=== PATIENT | male | born 1970 | race Caucasian/White ===

== ENCOUNTER 2017-08-03 15:10 | Emergency (ER) | payer SELFPAY ==
--- NOTE | 2017-08-03 17:12 | RAD REPORT ---
EXAM DESCRIPTION: Alona Archuleta And Lat (2 Views)08/03/2017 5:04 pm CLINICAL HISTORY: Cough COMPARISON: 2010 FINDINGS: The lungs appear clear of acute infiltrate. Biapical pleural thickening is without signif icant change from 2010 The heart is normal size IMPRESSION: No acute abnormalities displayed
[2017-08-03] MEDS ORDERED: HYDROCODONE/CHLORPHEN 5 ML/OSYR ONE (17:27)
--- NOTE | 2017-08-03 17:31 | ER ---
Nurse's Notes [facility] Name: Casey Owens Age: 46 yrs Sex: Male : 1970 Arrival Date: 08/03/2017 Time: 15:13 Bed 9 Private MD: None, None Diagnosis: Bronchitis, not specified as acute or chronic Presentation: 08/03 15:23 Presenting complaint: Patient states: C/O flu like s/s... Onset Thursday of sore throat, rk2 congestion, VICKERS... Body aches. Coughing. Chills. Transition of care: patient was not received from another setting of care. Onset of symptoms was July 31, 2017. Initial Sepsis Screen: Does the patient meet any 2 criteria? No. Patient's initial sepsis screen is negative. Does the patient have a suspected source of infection? No. Patient's initial sepsis screen is negative. Care prior to arrival: None. 15:23 Method Of Arrival: Ambulatory rk2 15:23 Acuity: CARYN 4 rk2 Historical: - Allergies: 15:25 No Known Allergies; rk2 - PMHx: 16:51 Hypertension; sg - Immunization history:: Pneumococcal vaccine is not up to date, Flu vaccine is not up to date. - Social history:: Smoking status: Patient uses tobacco products, smokes three packs cigarettes per day. Screenin:40 Abuse screen: Denies threats or abuse. Denies injuries from another. Nutritional sg screening: No deficits noted. Tuberculosis screening: No symptoms or risk factors identified. Never had TB. Fall Risk None identified. Assessment: 16:40 General: Appears in no apparent distress. comfortable, well groomed, well developed, sg well nourished, Behavior is calm, cooperative, appropriate for age. Pain: Complains of pain in bodyaches. Neuro: Level of Consciousness is awake, alert, obeys commands, Oriented to person, place, time, Court Deputy are equal bilaterally Moves all extremities. Full function Gait is steady, Speech is normal, Facial symmetry appears normal. Cardiovascular: Heart tones S1 S2 present Capillary refill is brisk in bilateral fingers Patient's skin is warm and dry. Respiratory: Airway is patent Respiratory effort is even, unlabored, Respiratory pattern is regular, symmetrical, Breath sounds are clear. GI: No signs and/or symptoms were reported involving the gastrointestinal system. : No signs and/or symptoms were reported regarding the genitourinary system. EENT: Oral mucosa is moist. Throat is pink. Derm: No signs and/or symptoms reported regarding the dermatologic system. Musculoskeletal: No signs and/or symptoms reported regarding the musculoskeletal system. Vital Signs: 15:25 BP 151 / 99; Pulse 83; Resp 18; Temp 98.6; Pulse Ox 98% on R/A; rk2 17:40 BP 132 / 88; Pulse 87; Resp 17; Temp 98.6; Pulse Ox 100% on R/A; sg ED Course: 15:13 Patient arrived in ED. mr 15:13 None, None is Private Physician. mr 15:25 Triage completed. rk2 15:25 Arm band placed on left wrist. rk2 16:26 Johann De La Paz NP [facility]. pm1 16:26 Al Braden MD is Attending Physician. pm1 16:39 Titi Alvarenga, RADHA is Primary Nurse. sg 16:40 Patient has correct armband on for positive identification. Adult w/ patient. Pulse ox sg on. NIBP on. 16:47 Strep swab sent to lab. sg 16:57 Patient moved to radiology via wheelchair. ml 17:02 X-ray completed. Patient tolerated procedure well. ml 17:02 Patient moved back from radiology. ml 17:04 Chest Pa And Lat (2 Views) XRAY In Process Unspecified. EDMS 17:40 No provider procedures requiring assistance completed. Patient did not have IV access sg during this emergency room visit. Administered Medications: 17:30 Drug: Tussionex Pennkinetic ER 5 ml Route: PO; sg Outcome: 17:30 Discharge ordered by . pm1 17:40 Discharged to home ambulatory, with family. sg 17:40 Condition: good 17:40 Discharge instructions given to patient, Instructed on discharge instructions, follow up and referral plans. medication usage, safety practices, Demonstrated understanding of instructions, follow-up care, medications, Prescriptions given X 3. 17:46 Patient left the ED. dm5 Signatures: Dispatcher [employer] Natasha Gibbs RN RN dm5 Titi Alvarenga RN RN sg Tushar Mili Milan, Fiona Johann De La Paz, SE CONDUCTOR SYMPHONIC ORCHESTRA pm1 Anu Rogers RN RN rk2
--- NOTE | 2017-08-03 17:31 | EDPHYS ---
Physician Documentation [facility] Name: Casey Owens Age: 46 yrs Sex: Male : 1970 Arrival Date: 08/03/2017 Time: 15:13 Bed 9 Private MD: None, None ED Physician Al Braden HPI: 08/03 17:20 This 46 yrs old Male presents to ER via Ambulatory with complaints of Flu pm1 Symptoms. 17:20 The patient or guardian reports cough, with productive sputum, that is yellow, flu pm1 symptoms, body aches. Onset: The symptoms/episode began/occurred 2 day(s) ago. Severity of symptoms: in the emergency department the symptoms are unchanged. Modifying factors: The symptoms are alleviated by OTC cold preparation, the symptoms are aggravated by nothing. Associated signs and symptoms: Pertinent positives: fever, sore throat, Pertinent negatives: chest pain, diarrhea, ear ache, rhinorrhea, vomiting. The patient has not recently seen a physician. Historical: - Allergies: 15:25 No Known Allergies; rk2 - PMHx: 16:51 Hypertension; sg - Immunization history:: Pneumococcal vaccine is not up to date, Flu vaccine is not up to date. - Social history:: Smoking status: Patient uses tobacco products, smokes three packs cigarettes per day. ROS: 17:20 Eyes: Negative for injury, pain, redness, and discharge. pm1 17:20 Neck: Negative for injury, pain, and swelling, Cardiovascular: Negative for chest pain, palpitations, and edema. 17:20 Abdomen/GI: Negative for abdominal pain, nausea, vomiting, diarrhea, and constipation, Back: Negative for injury and pain, : Negative for injury, bleeding, discharge, and swelling, MS/Extremity: Negative for injury and deformity, Skin: Negative for injury, rash, and discoloration, Neuro: Negative for headache, weakness, numbness, tingling, and seizure. 17:20 Constitutional: Positive for body aches, chills, fever, Negative for poor PO intake. 17:20 ENT: Positive for sinus congestion, sore throat, Negative for sinus pain. 17:20 Respiratory: Positive for cough, Negative for shortness of breath, wheezing. Exam: 17:20 Constitutional: This is a well developed, well nourished patient who is awake, alert, pm1 and in no acute distress. Head/Face: Normocephalic, atraumatic. Eyes: Pupils equal round and reactive to light, extra-ocular motions intact. Lids and lashes normal. Conjunctiva and sclera are non-icteric and not injected. Cornea within normal limits. Periorbital areas with no swelling, redness, or edema. 17:20 Neck: Trachea midline, no thyromegaly or masses palpated, and no cervical lymphadenopathy. Supple, full range of motion without nuchal rigidity, or vertebral point tenderness. No Meningismus. Chest/axilla: Normal chest wall appearance and motion. Nontender with no deformity. No lesions are appreciated. Cardiovascular: Regular rate and rhythm with a normal S1 and S2. No gallops, murmurs, or rubs. Normal PMI, no JVD. No pulse deficits. Respiratory: Lungs have equal breath sounds bilaterally, clear to auscultation and percussion. No rales, rhonchi or wheezes noted. No increased work of breathing, no retractions or nasal flaring. Abdomen/GI: Soft, non-tender, with normal bowel sounds. No distension or tympany. No guarding or rebound. No evidence of tenderness throughout. Back: No spinal tenderness. No costovertebral tenderness. Full range of motion. Skin: Warm, dry with normal turgor. Normal color with no rashes, no lesions, and no evidence of cellulitis. MS/ Extremity: Pulses equal, no cyanosis. Neurovascular intact. Full, normal range of motion. 17:20 ENT: External ear(s): are unremarkable, Ear canal(s): are normal, TM's: are normal, Nose: is normal, Mouth: is normal, Posterior pharynx: Airway: normal, no evidence of obstruction, patent, Tonsils: are normal in appearance, with erythema, no enlargement, no exudate, no ulcerations, peritonsillar mass, is not appreciated, pooling of secretions, is not appreciated. 17:20 Neuro: Orientation: is normal, Motor: moves all fours. Vital Signs: 15:25 BP 151 / 99; Pulse 83; Resp 18; Temp 98.6; Pulse Ox 98% on R/A; rk2 17:40 BP 132 / 88; Pulse 87; Resp 17; Temp 98.6; Pulse Ox 100% on R/A; sg MDM: 16:38 Patient medically screened. pm1 17:29 Data reviewed: vital signs. Data interpreted: Pulse oximetry: on room air is 98 %. pm1 Interpretation: normal. Counseling: I had a detailed discussion with the patient and/or guardian regarding: the historical points, exam findings, and any diagnostic results supporting the discharge/admit diagnosis, lab results, radiology results, the need for outpatient follow up, to return to the emergency department if symptoms worsen or persist or if there are any questions or concerns that arise at home. 08/03 15:29 Order name: Flu; Complete Time: 16:26 rk2 08/03 16:03 Order name: Strep; Complete Time: 17:29 kb 08/03 16:48 Order name: Chest Pa And Lat (2 Views) XRAY; Complete Time: 17:17 pm1 08/03 17:29 Order name: Throat Culture EDMS Administered Medications: 17:30 Drug: Tussionex Pennkinetic ER 5 ml Route: PO; sg Disposition: 08/03/17 17:30 Discharged to Home. Impression: Bronchitis, not specified as acute or chronic. - Condition is Stable. - Discharge Instructions: Acute Bronchitis, How to Use an Inhaler, Smoking Cessation, Cough, Adult. - Prescriptions for Medrol (Danny) 4 mg Oral Tablets, Dose Pack - take 1 tablet by ORAL route as directed - follow package instructions; 1 packet. Albuterol Sulfate 90 mcg/actuation - inhale 1-2 puff by INHALATION route every 4-6 hours; 1 Inhaler. Guaifenesin AC 10- 100 mg/5 mL Oral Liquid - take 10 milliliter by ORAL route every 4 hours As needed; 240 milliliter. - Medication Reconciliation Form, Thank You Letter, Antibiotic Education, Prescription Opioid Use form. - Follow up: Emergency Department; When: As needed; Reason: Worsening of condition. Follow up: Private Physician; When: 2 - 3 days; Reason: Recheck today's complaints, Continuance of care, Re-evaluation by your physician. - Problem is new. - Symptoms have improved. Addendum: 08/04/2017 21:30 Co-signature as Attending Physician, Al Braden MD. g s Signatures: Dispatcher [facility] Natasha Rai, RN RN dm5 Titi Alvarenga RN RN sg Johann De La Paz, GEOTHERMAL OPERATING ENGINEER GEOTHERMAL OPERATING ENGINEER pm1 Al Braden MD MD gs Kidder, Rhonda, RADHA RN rk2
[2017-08-03 17:56] VITALS: BP 151/99; TEMP 98.6; O2SAT 98
== END 2017-08-03 17:46 | disposition home or self-care (01) ==
LOC: ER 15:10
DX: J40 Bronchitis, not specified as acute or chronic (principal); F17.210 Nicotine dependence, cigarettes, uncomplicated
CPT/HCPCS: 71046; 87070; 87081; 87804; 99284

== ENCOUNTER 2017-10-06 15:18 | Emergency (ER) | payer OTHER ==
[2017-10-06] MEDS ORDERED: NA CHLORIDE 0.9% 1,000 ML ONE (16:28)
[2017-10-06] MEDS ORDERED: KETOROLAC 30 MG/ML INJ ONE (16:28)
[2017-10-06] MEDS ORDERED: ONDANSETRON 4 MG/2 ML VIAL ONE (16:28)
[2017-10-06 16:34] LABS: Absolute Monocytes 0.7 K/uL (0.1-1.3); Absolute Neutrophil 6.4 K/uL (1.8-8.0); Basophils % 1.1 % (0-1.3); Eosinophils % 2.8 % (0-4.4); Hematocrit 50.1 % (39.6-49.0); Lymphocytes % 28.4 % (15.3-44.8); MCH 29.2 pg (27.0-35.0); MCV 88.5 fL (80-100); MPV 8.9 fL (7.6-11.3); Monocytes % 6.7 % (3.3-12.3); RBC Red Blood Cell Count 5.66 M/uL (4.33-5.43)
--- NOTE | 2017-10-06 16:37 | RAD REPORT ---
EXAM DESCRIPTION: CT - Head Brain Wo Cont - 10/06/2017 4:28 pm CLINICAL HISTORY: HEADACHE COMPARISON: HEAD BRAIN W O CONTRAST dated 06/02/2011 TECHNIQUE: All CT scans are performed using dose optimization technique as appropriate and may inclu de automated exposure control or mA/KV adjustment according to patient size. FINDINGS: No intracranial hemorrhage, hydrocephalus or extra-axial fluid collection.No areas of brai n edema or evidence of midline shift. The paranasal sinuses and mastoids are clear. The calvarium is intact. IMPRESSION: No acute intracranial abnormality.
[2017-10-06 16:56] LABS: ALT/SGPT 38 U/L (12-78); AST/SGOT 21 U/L (15-37); Albumin 3.9 g/dL (3.4-5.0); Alkaline Phosphatase 120 U/L (45-117); BUN Blood Urea Nitrogen 11 mg/dL (7-18); Bicarbonate 26 mmol/L (21-32); Bilirubin Total 0.4 mg/dL (0.2-1.0); Glucose Level 105 mg/dL (74-106); Potassium 3.8 mmol/L (3.5-5.1); Protein, Total 7.2 g/dL (6.4-8.2); Sodium Level 140 mmol/L (136-145)
--- NOTE | 2017-10-06 17:17 | ER ---
Nurse's Notes [facility] Name: Casey Owens Age: 46 yrs Sex: Male : 1970 Arrival Date: 10/06/2017 Time: 15:22 Bed 28 Private MD: SIMÓN MEJIAS Diagnosis: Headache;Migraine;Essential (primary) hypertension Presentation: 10/06 15:22 Presenting complaint: Patient states: headache Q 2-3 days and have been occurring all sv his life. Past 2-3 months headaches have been coming on Q 2-3 days. Excedrin has some relief. Pt also c/o weakness, photosensitivity and nausea. Transition of care: patient was not received from another setting of care. Onset of symptoms was October 06, 2017. Care prior to arrival: None. 15:22 Method Of Arrival: Ambulatory sv 15:22 Acuity: CARYN 3 sv 16:00 Initial Sepsis Screen: Does the patient meet any 2 criteria? No. Patient's initial rk2 sepsis screen is negative. Does the patient have a suspected source of infection? No. Patient's initial sepsis screen is negative. 16:00 Risk Assessment: Do you want to hurt yourself or someone else? Patient reports no rk2 desire to harm self or others. Triage Assessment: 16:00 General: Appears in no apparent distress. well groomed, well developed, well nourished, rk2 Behavior is calm, cooperative. 16:00 Pain: Complains of pain in right temporal area and right side of the back of head and rk2 left temporal area and left side of the back of head and forehead. Neuro: Level of Consciousness is alert, obeys commands, Oriented to person, place, time, situation. Respiratory: Airway is patent Respiratory effort is even, unlabored, Respiratory pattern is regular, symmetrical. Derm: Skin is pink, warm \T\ dry. Historical: - Allergies: 15:25 No Known Allergies; sv - Home Meds: 15:25 esomeprazole magnesium oral oral [Active]; metoprolol succinate 25 mg oral Tb24 sv [Active]; - PMHx: 15:25 Hypertension; GERD; sv - PSHx: 15:25 right 5th digit; cyst removed from head; sv - Immunization history:: Adult Immunizations up to date. - Social history:: Smoking status: Patient uses tobacco products, smokes two packs cigarettes per day. - Ebola Screening: : No symptoms or risks identified at this time. - Family history:: not pertinent. Screenin:00 Abuse screen: Denies threats or abuse. rk2 16:00 Nutritional screening: No deficits noted. Tuberculosis screening: No symptoms or risk rk2 factors identified. Fall Risk None identified. Vital Signs: 15:26 BP 166 / 102; Pulse 79; Resp 20; Temp 98.5(O); Pulse Ox 98% ; Weight 117.93 kg; Height sv 6 ft. 0 in. (182.88 cm); Pain 8/10; 17:15 BP 144 / 89; Pulse 71; Resp 18; Pulse Ox 98% on R/A; rk2 17:55 BP 145 / 86; Pulse 65; Resp 18; Pulse Ox 98% on R/A; rk2 15:26 Body Mass Index 35.26 (117.93 kg, 182.88 cm) sv ED Course: 15:22 Patient arrived in ED. rg4 15:22 SIMÓN MEJIAS is Private Physician. rg4 15:24 Triage completed. sv 15:25 Arm band placed on left wrist. sv 15:33 Manuel Hughes MD is Attending Physician. nolan 15:53 Anu Rogers RN is Primary Nurse. rk2 16:00 Patient has correct armband on for positive identification. Placed in gown. Call light rk2 in reach. 16:[address] vr 16:28 CT completed. Patient tolerated procedure well. Patient moved back from CT. nj 16:29 CT Head Brain wo Cont In Process Unspecified. EDMS 17:16 Daniel Carrera MD is Referral Physician. nolan 18:10 No provider procedures requiring assistance completed. IV discontinued. rk2 Administered Medications: 16:35 Drug: TORadol 30 mg Route: IVP; Site: left upper arm; rk2 18:09 Follow up: Response: No adverse reaction rk2 16:35 Drug: Zofran 4 mg Route: IVP; Site: left upper arm; rk2 18:09 Follow up: Response: No adverse reaction rk2 16:36 Drug: NS 0.9% 1000 ml Route: IV; Rate: 1 bolus; Site: left upper arm; rk2 18:09 Follow up: Response: No adverse reaction; IV Status: Completed infusion rk2 17:32 Drug: Norvasc 5 mg Route: PO; rk2 18:09 Follow up: Response: No adverse reaction rk2 Outcome: 17:16 Discharge ordered by MD. francisco 18:10 Discharged to home ambulatory. rk2 18:10 Condition: improved 18:10 Discharge instructions given to patient, Prescriptions given X 3. 18:11 Patient left the ED. rk2 Signatures: Dispatcher [employer] Vale Fishman RN RN Manuel Li MD MD cha Davis, Libertad Rankin, Dimple rg4 Shawn Marte Rhonda RN RN rk2 Corrections: (The following items were deleted from the chart) 15:27 15:22 Presenting complaint: Patient states: headache Q 2-3 days and have been occurring sv all his life. Past 2-3 months headaches have been coming on Q 2-3 days. Excedrin has some relief. Pt also c/o weakness. sv 15:27 15:26 Pulse 79bpm; Resp 20bpm; Pulse Ox 98%; Temp 98.5F Oral; 117.93 kg; Height 6 ft. 0 sv in.; BMI: 35.2; Pain 8/10; sv 16:42 16:27 Patient moved to [facility] roro
--- NOTE | 2017-10-06 17:17 | EDPHYS ---
Physician Documentation [facility] Name: Casey Owens Age: 46 yrs Sex: Male : 1970 Arrival Date: 10/06/2017 Time: 15:22 Bed 28 Private MD: SIMÓN MEJIAS ED Physician Manuel Hughes HPI: 10/06 16:16 This 46 yrs old Male presents to ER via Ambulatory with complaints of nolan MIGRAINE. 16:16 The patient complains of pain to the forehead, left side of the back of head, left nolan temporal area, right side of the back of head and right temporal area. The patient describes the headache as aching. Onset: The symptoms/episode began/occurred 2 day(s) ago. Associated signs and symptoms: The patient has no apparent associated signs or symptoms. Severity of symptoms: At its worst the pain was mild, moderate, in the emergency department the pain is unchanged. Headache History: The patient has had previous headaches and this one is similar to previous episodes. Historical: - Allergies: 15:25 No Known Allergies; sv - Home Meds: 15:25 esomeprazole magnesium oral oral [Active]; metoprolol succinate 25 mg oral Tb24 sv [Active]; - PMHx: 15:25 Hypertension; GERD; sv - PSHx: 15:25 right 5th digit; cyst removed from head; sv - Immunization history:: Adult Immunizations up to date. - Social history:: Smoking status: Patient uses tobacco products, smokes two packs cigarettes per day. - Ebola Screening: : No symptoms or risks identified at this time. - Family history:: not pertinent. ROS: 16:16 Constitutional: Negative for fever, chills, and weight loss, Eyes: Negative for injury, nolan pain, redness, and discharge, ENT: Negative for injury, pain, and discharge, Neck: Negative for injury, pain, and swelling, Cardiovascular: Negative for chest pain, palpitations, and edema, Respiratory: Negative for shortness of breath, cough, wheezing, and pleuritic chest pain, Abdomen/GI: Negative for abdominal pain, nausea, vomiting, diarrhea, and constipation, Back: Negative for injury and pain, : Negative for injury, bleeding, discharge, and swelling, MS/Extremity: Negative for injury and deformity, Skin: Negative for injury, rash, and discoloration, Psych: Negative for depression, anxiety, suicide ideation, homicidal ideation, and hallucinations, Allergy/Immunology: Negative for hives, rash, and allergies, Endocrine: Negative for neck swelling, polydipsia, polyuria, polyphagia, and marked weight changes, Hematologic/Lymphatic: Negative for swollen nodes, abnormal bleeding, and unusual bruising. 16:16 Neuro: Positive for headache. Exam: 16:16 Constitutional: This is a well developed, well nourished patient who is awake, alert, nolan and in no acute distress. Head/Face: Normocephalic, atraumatic. Eyes: Pupils equal round and reactive to light, extra-ocular motions intact. Lids and lashes normal. Conjunctiva and sclera are non-icteric and not injected. Cornea within normal limits. Periorbital areas with no swelling, redness, or edema. ENT: Nares patent. No nasal discharge, no septal abnormalities noted. Tympanic membranes are normal and external auditory canals are clear. Oropharynx with no redness, swelling, or masses, exudates, or evidence of obstruction, uvula midline. Mucous membranes moist. Neck: Trachea midline, no thyromegaly or masses palpated, and no cervical lymphadenopathy. Supple, full range of motion without nuchal rigidity, or vertebral point tenderness. No Meningismus. Chest/axilla: Normal chest wall appearance and motion. Nontender with no deformity. No lesions are appreciated. Cardiovascular: Regular rate and rhythm with a normal S1 and S2. No gallops, murmurs, or rubs. Normal PMI, no JVD. No pulse deficits. Respiratory: Lungs have equal breath sounds bilaterally, clear to auscultation and percussion. No rales, rhonchi or wheezes noted. No increased work of breathing, no retractions or nasal flaring. Abdomen/GI: Soft, non-tender, with normal bowel sounds. No distension or tympany. No guarding or rebound. No evidence of tenderness throughout. Back: No spinal tenderness. No costovertebral tenderness. Full range of motion. Male : Normal genitalia with no discharge or lesions. Skin: Warm, dry with normal turgor. Normal color with no rashes, no lesions, and no evidence of cellulitis. MS/ Extremity: Pulses equal, no cyanosis. Neurovascular intact. Full, normal range of motion. Neuro: Awake and alert, GCS 15, oriented to person, place, time, and situation. Cranial nerves II-XII grossly intact. Motor strength 5/5 in all extremities. Sensory grossly intact. Cerebellar exam normal. Normal gait. Psych: Awake, alert, with orientation to person, place and time. Behavior, mood, and affect are within normal limits. Vital Signs: 15:26 BP 166 / 102; Pulse 79; Resp 20; Temp 98.5(O); Pulse Ox 98% ; Weight 117.93 kg; Height sv 6 ft. 0 in. (182.88 cm); Pain 8/10; 17:15 BP 144 / 89; Pulse 71; Resp 18; Pulse Ox 98% on R/A; rk2 17:55 BP 145 / 86; Pulse 65; Resp 18; Pulse Ox 98% on R/A; rk2 15:26 Body Mass Index 35.26 (117.93 kg, 182.88 cm) sv MDM: 15:33 Patient medically screened. [facility] 16:17 Data reviewed: vital signs, nurses notes, lab test result(s), radiologic studies, CT nolan scan. 10/06 16:15 Order name: CBC with Diff [facility] 10/06 16:15 Order name: Comprehensive Metabolic Panel [facility] 10/06 16:15 Order name: CT Head Brain wo Cont; Complete Time: 17:14 [facility] 10/06 16:16 Order name: CBC with Automated Diff; Complete Time: 17:14 [facility] 10/06 16:16 Order name: Comprehensive Metabolic Panel; Complete Time: 17:14 [facility] 10/06 17:48 Order name: Urine Dipstick--Ancillary (enter results) 10/06 16:15 Order name: Urine Dipstick-Ancillary (obtain specimen); Complete Time: 17:27 [facility] Administered Medications: 16:35 Drug: TORadol 30 mg Route: IVP; Site: left upper arm; rk2 18:09 Follow up: Response: No adverse reaction rk2 16:35 Drug: Zofran 4 mg Route: IVP; Site: left upper arm; rk2 18:09 Follow up: Response: No adverse reaction rk2 16:36 Drug: NS 0.9% 1000 ml Route: IV; Rate: 1 bolus; Site: left upper arm; rk2 18:09 Follow up: Response: No adverse reaction; IV Status: Completed infusion rk2 17:32 Drug: Norvasc 5 mg Route: PO; rk2 18:09 Follow up: Response: No adverse reaction rk2 Disposition: 10/06/17 17:16 Discharged to Home. Impression: Headache, Migraine, Essential (primary) hypertension. - Condition is Stable. - Discharge Instructions: General Headache Without Cause, Hypertension, Hypertension, [id number], General Headache Without Cause, [id number]. - Prescriptions for Fioricet with Codeine 50- 325-40-30 mg Oral capsule - take 1 capsule by ORAL route every 4 hours as needed not to exceed 6 capsules per 24hrs; 26 capsule. Norvasc 5 mg Oral Tablet - take 1 tablet by ORAL route once daily; 20 tablet. Zofran 4 mg Oral Tablet - take 1 tablet by ORAL route every 12 hours As needed; 20 tablet. - Medication Reconciliation Form, Thank You Letter, Antibiotic Education, Prescription Opioid Use form. - Follow up: Private Physician; When: 2 - 3 days; Reason: Recheck today's complaints, Continuance of care, Re-evaluation by your physician. Follow up: Daniel Carrera; When: 2 - 3 days; Reason: Recheck today's complaints, Continuance of care, Re-evaluation by your physician. - Problem is new. - Symptoms have improved. Signatures: Dispatcher [employer] EDVale Horvath RN RN sv Anderson, Corey, MD MD cha Kidder, Rhonda, RN RN rk2 Corrections: (The following items were deleted from the chart) 18:11 17:16 10/06/2017 17:16 Discharged to Home. Impression: Headache; Migraine; Essential rk2 (primary) hypertension. Condition is Stable. Discharge Instructions: General Headache Without Cause, Hypertension, Hypertension, [id number], General Headache Without Cause, [id number]. Prescriptions for Fioricet with Codeine 53-502-64-30 mg Oral capsule - take 1 capsule by ORAL route every 4 hours as needed not to exceed 6 capsules per 24hrs; 26 capsule, Norvasc 5 mg Oral Tablet - take 1 tablet by ORAL route once daily; 20 tablet, Zofran 4 mg Oral Tablet - take 1 tablet by ORAL route every 12 hours As needed; 20 tablet. and Forms are Medication Reconciliation Form, Thank You Letter, Antibiotic Education, Prescription Opioid Use. Follow up: Private Physician; When: 2 - 3 days; Reason: Recheck today's complaints, Continuance of care, Re-evaluation by your physician. Follow up: Daniel Carrera; When: 2 - 3 days; Reason: Recheck today's complaints, Continuance of care, Re-evaluation by your physician. Problem is new. Symptoms have improved. nolan
[2017-10-06] MEDS ORDERED: AMLODIPINE 5 MG TAB ONE (17:31)
[2017-10-06 17:53] LABS: Urine Blood NEGATIVE (NEG); Urine Glucose NEGATIVE (NEG); Urine Protein TRACE (NEG); Urine Specific Gravity 1.025 (1.005-1.030); Urine pH 5.5 (5.0-7.0)
[2017-10-06 18:15] VITALS: TEMP 98.5; O2SAT 98
[2017-10-06 18:17] VITALS: BP 145/86
== END 2017-10-06 18:11 | disposition home or self-care (01) ==
LOC: ER 15:18
DX: G43.909 Migraine, unspecified, not intractable, without status migrainosus (principal); I10 Essential (primary) hypertension; F17.210 Nicotine dependence, cigarettes, uncomplicated
CPT/HCPCS: 36415; 70450; 80053; 81003; 85025; 96361; 96374; 96375; 99284; J2405; J7030

== ENCOUNTER 2017-11-01 00:08 | Emergency (ER) | payer OTHER ==
--- NOTE | 2017-11-01 02:21 | ER ---
Nurse's Notes [facility] Name: Casey Owens Age: 46 yrs Sex: Male : 1970 Arrival Date: 11/01/2017 Time: 00:09 Bed 16 Private MD: SIMÓN MEJIAS Diagnosis: Epididymitis Presentation: 11/01 00:32 Presenting complaint: Patient states: My right testicle has been hurting and it feels tl2 like the cord above it feels swollen. Denies any trauma. Transition of care: patient was not received from another setting of care. Onset of symptoms was October 29, 2017. Risk Assessment: Do you want to hurt yourself or someone else? Patient reports no desire to harm self or others. Initial Sepsis Screen: Does the patient meet any 2 criteria? No. Patient's initial sepsis screen is negative. Does the patient have a suspected source of infection? No. Patient's initial sepsis screen is negative. Care prior to arrival: None. 00:32 Method Of Arrival: Ambulatory tl2 00:32 Acuity: CARYN 3 tl2 Triage Assessment: 00:33 General: Appears in no apparent distress. uncomfortable, Behavior is calm, cooperative, tl2 appropriate for age. Pain: Complains of pain in groin, right testicle Pain does not radiate. Pain currently is 6 out of 10 on a pain scale. Aggravated by increased activity. Neuro: Level of Consciousness is awake, alert, obeys commands, Oriented to person, place, time, situation. Cardiovascular: Denies chest pain. Respiratory: Airway is patent Respiratory effort is even, unlabored, Respiratory pattern is regular, symmetrical. GI: No signs and/or symptoms were reported involving the gastrointestinal system. : No signs and/or symptoms were reported regarding the genitourinary system. Derm: Skin is pink, warm \T\ dry. Historical: - Allergies: 00:33 No Known Allergies; tl2 - Home Meds: 00:33 esomeprazole magnesium Oral [Active]; metoprolol succinate 25 mg Oral Tb24 [Active]; tl2 - PMHx: 00:33 GERD; Hypertension; tl2 - Immunization history:: Adult Immunizations up to date. - Social history:: Smoking status: Patient uses tobacco products, smokes two packs cigarettes per day. - Ebola Screening: : No symptoms or risks identified at this time. Screenin:35 Abuse screen: Denies threats or abuse. Nutritional screening: No deficits noted. tl2 Tuberculosis screening: No symptoms or risk factors identified. Fall Risk None identified. Assessment: 00:36 General: see triage assessment. tl2 00:59 Reassessment: U/S PAGED FOR SCROTAL U/S, R/O TORSION. bp 01:54 Reassessment: VS STABLE ON MONITOR, U/S PENDING. bp 02:03 Reassessment: U/S AT B/S. bp 02:20 Reassessment: U/S COMPLETED, INITIAL IMPRESSION OF EPIDIDYMITIS. bp 02:36 Reassessment: PT D/C HOME AMBULATORY WITH FAMILY, DX WITH EPIDIDYMITIS. bp Vital Signs: 00:33 BP 148 / 94; Pulse 85; Resp 18; Temp 98.5(O); Pulse Ox 97% on R/A; Weight 113.4 kg; tl2 Height 6 ft. 0 in. (182.88 cm); Pain 6/10; 01:53 BP 132 / 73; Pulse 77; Resp 14; Pulse Ox 98% ; bp 00:33 Body Mass Index 33.91 (113.40 kg, 182.88 cm) tl2 ED Course: 00:09 Patient arrived in ED. es 00:12 SIMÓN MEJIAS is Private Physician. es 00:21 Terry Howell, RN is Primary Nurse. bp 00:33 Triage completed. tl2 00:33 Arm band placed on right wrist. tl2 00:35 Patient has correct armband on for positive identification. Bed in low position. Call tl2 light in reach. Side rails up X 1. Adult w/ patient. 00:52 Diandra De La Paz NP is PHCP. pm1 00:52 Manoj Girard MD is Attending Physician. pm1 02:20 Lelia Mccarty MD is Referral Physician. pm1 02:21 Ultrasound completed. Patient tolerated well. Notified ED Physician diandra. sg3 02:21 US Scrotum Testicles Sent. bp 02:22 US Scrotum Testicles In Process Unspecified. EDMS 02:36 No provider procedures requiring assistance completed. Patient did not have IV access bp during this emergency room visit. Administered Medications: 02:35 Drug: [place] 10 mg-325 mg 1 tabs Route: PO; bp 02:35 Follow up: Response: Medication administered at discharge. bp 02:35 Drug: Bactrim (160 mg-800 mg (DS) 1 tablet Route: PO; bp 02:35 Follow up: Response: Medication administered at discharge. bp Outcome: 02:20 Discharge ordered by . pm1 02:36 Discharged to home ambulatory, with family. bp 02:36 Condition: stable 02:36 Discharge instructions given to patient, Instructed on discharge instructions, follow up and referral plans. medication usage, Demonstrated understanding of instructions, follow-up care, medications, Prescriptions given X 2. 02:50 Patient left the ED. bp Signatures: Dispatcher [employer] EDShilpa Garza Patrick, NP VALVE MACHINE OPERATOR pm1 Liseth Youssef RN RN tl2 Terry Howell RN RN bp Luz James 3
--- NOTE | 2017-11-01 02:21 | EDPHYS ---
Physician Documentation [facility] Name: Casey Owens Age: 46 yrs Sex: Male : 1970 Arrival Date: 11/01/2017 Time: 00:09 Bed 16 Private MD: SIMÓN MEJIAS ED Physician Manoj Girard HPI: 11/01 02:00 This 46 yrs old Male presents to ER via Ambulatory with complaints of pm1 Testicular Problem. 02:00 The patient presents with scrotal pain, of the right side, in the area of the pm1 epidydimis, with swelling, tenderness, in the area of the epidydimis. Onset: The symptoms/episode began/occurred 4 day(s) ago. Modifying factors: The symptoms are alleviated by nothing, the symptoms are aggravated by palpation. Associated signs and symptoms: Pertinent negatives: abdominal pain, dysuria, fever, nausea, vomiting. Severity of symptoms: in the emergency department the symptoms are unchanged. The patient has experienced similar episodes in the past, a few times. The patient has not recently seen a physician. Historical: - Allergies: 00:33 No Known Allergies; tl2 - Home Meds: 00:33 esomeprazole magnesium Oral [Active]; metoprolol succinate 25 mg Oral Tb24 [Active]; tl2 - PMHx: 00:33 GERD; Hypertension; tl2 - Immunization history:: Adult Immunizations up to date. - Social history:: Smoking status: Patient uses tobacco products, smokes two packs cigarettes per day. - Ebola Screening: : No symptoms or risks identified at this time. ROS: 02:00 Constitutional: Negative for fever, chills, and weight loss, Eyes: Negative for injury, pm1 pain, redness, and discharge, ENT: Negative for injury, pain, and discharge, Neck: Negative for injury, pain, and swelling, Cardiovascular: Negative for chest pain, palpitations, and edema, Respiratory: Negative for shortness of breath, cough, wheezing, and pleuritic chest pain, Abdomen/GI: Negative for abdominal pain, nausea, vomiting, diarrhea, and constipation, Back: Negative for injury and pain. 02:00 MS/Extremity: Negative for injury and deformity, Skin: Negative for injury, rash, and discoloration, Neuro: Negative for headache, weakness, numbness, tingling, and seizure. 02:00 : Positive for testicular pain of the right testicle. Exam: 02:00 Constitutional: This is a well developed, well nourished patient who is awake, alert, pm1 and in no acute distress. Head/Face: Normocephalic, atraumatic. Neck: Trachea midline, no thyromegaly or masses palpated, and no cervical lymphadenopathy. Supple, full range of motion without nuchal rigidity, or vertebral point tenderness. No Meningismus. Chest/axilla: Normal chest wall appearance and motion. Nontender with no deformity. No lesions are appreciated. Cardiovascular: Regular rate and rhythm with a normal S1 and S2. No gallops, murmurs, or rubs. Normal PMI, no JVD. No pulse deficits. Respiratory: Lungs have equal breath sounds bilaterally, clear to auscultation and percussion. No rales, rhonchi or wheezes noted. No increased work of breathing, no retractions or nasal flaring. Abdomen/GI: Soft, non-tender, with normal bowel sounds. No distension or tympany. No guarding or rebound. No evidence of tenderness throughout. Back: No spinal tenderness. No costovertebral tenderness. Full range of motion. 02:00 Skin: Warm, dry with normal turgor. Normal color with no rashes, no lesions, and no evidence of cellulitis. MS/ Extremity: Pulses equal, no cyanosis. Neurovascular intact. Full, normal range of motion. 02:00 : Male external genitalia: normal, tenderness, of the right testicle is noted, of the epididymis area, Sexual behavior: the patient is sexually active, and reports a single partner. 02:00 Neuro: Orientation: is normal, Motor: is normal, moves all fours, Gait: is steady, at a normal pace, without difficulty. Vital Signs: 00:33 BP 148 / 94; Pulse 85; Resp 18; Temp 98.5(O); Pulse Ox 97% on R/A; Weight 113.4 kg; tl2 Height 6 ft. 0 in. (182.88 cm); Pain 6/10; 01:53 BP 132 / 73; Pulse 77; Resp 14; Pulse Ox 98% ; bp 00:33 Body Mass Index 33.91 (113.40 kg, 182.88 cm) tl2 MDM: 00:54 Patient medically screened. pm1 02:18 Data reviewed: vital signs. Data interpreted: Pulse oximetry: on room air is 98 %. pm1 Interpretation: normal. 02:18 Counseling: I had a detailed discussion with the patient and/or guardian regarding: the pm1 historical points, exam findings, and any diagnostic results supporting the discharge/admit diagnosis, lab results, radiology results, the need for outpatient follow up, for definitive care, a urologist, to return to the emergency department if symptoms worsen or persist or if there are any questions or concerns that arise at home. ED course: Preliminary report. No torsion present. Right sided epididymitis . 02:20 Differential diagnosis: UTI, Torsion, epididymitis. pm1 11/01 01:13 Order name: Urine Dipstick--Ancillary (enter results) rg2 11/01 01:00 Order name: US Scrotum Testicles pm1 11/01 01:00 Order name: Urine Dipstick-Ancillary (obtain specimen); Complete Time: 01:06 pm1 Administered Medications: 02:35 Drug: [place] 10 mg-325 mg 1 tabs Route: PO; bp 02:35 Follow up: Response: Medication administered at discharge. bp 02:35 Drug: Bactrim (160 mg-800 mg (DS) 1 tablet Route: PO; bp 02:35 Follow up: Response: Medication administered at discharge. bp Disposition: 03:10 Co-signature as Attending Physician, Manoj Girard MD. syed Disposition: 11/01/17 02:20 Discharged to Home. Impression: Epididymitis. - Condition is Stable. - Discharge Instructions: Epididymitis. - Prescriptions for Tylenol- Codeine #3 300-30 mg Oral Tablet - take 2 tablets by ORAL route every 6 hours As needed; 20 tablet. Bactrim DS 800- 160 mg Oral Tablet - take 1 tablet by ORAL route every 12 hours for 10 days; 20 tablet. - Medication Reconciliation Form, Thank You Letter, Antibiotic Education, Prescription Opioid Use form. - Follow up: Emergency Department; When: As needed; Reason: Worsening of condition. Follow up: Lelia Mccarty MD; When: 2 - 3 days; Reason: Recheck today's complaints, Continuance of care, Re-evaluation by your physician. - Problem is new. - Symptoms have improved. Signatures: Dispatcher [employer] EDMS Manoj Girard MD MD pkJohann Schaeffer NP DIRECTOR FINANCIAL ANALYSIS pm1 Liseth Youssef, RN RN tl2 Terry Howell, RN RN bp Corrections: (The following items were deleted from the chart) 02:50 02:20 11/01/2017 02:20 Discharged to Home. Impression: Epididymitis. Condition is bp Stable. Forms are Medication Reconciliation Form, Thank You Letter, Antibiotic Education, Prescription Opioid Use. Follow up: Emergency Department; When: As needed; Reason: Worsening of condition. Follow up: Lelia Mccarty; When: 2 - 3 days; Reason: Recheck today's complaints, Continuance of care, Re-evaluation by your physician. Problem is new. Symptoms have improved. pm1
[2017-11-01] MEDS ORDERED: SMZ./TMP. 800/160 MG TABLET ONE (02:32)
[2017-11-01] MEDS ORDERED: HYDROCODONE/APAP 10/325 TAB ONE (02:32)
[2017-11-01 02:54] VITALS: TEMP 98.5
[2017-11-01 02:55] VITALS: BP 132/73; O2SAT 98
[2017-11-01 04:54] LABS: Urine Blood NEGATIVE (NEG); Urine Glucose 2+ (NEG); Urine Protein TRACE (NEG); Urine Specific Gravity >1.030 (1.005-1.030); Urine pH 5.5 (5.0-7.0)
--- NOTE | 2017-11-01 08:37 | RAD REPORT ---
EXAM DESCRIPTION: US - Scrotum Testicles - 11/01/2017 2:23 am CLINICAL HISTORY: Right-sided scrotal pain and testicular pain COMPARISON: None. FINDINGS: Right epididymis is larger than the left and hyperemic. Right testicle measures 4.8 x 3.3 x 3.7 cm. Volume is 30.8 milliliters. Left testicle is 4.8 x 2.4 x 3.9 cm. Volume is 23.4 milliliters . Right testicle is hyperemic relative to the left. Intra testicular blood flow is confirmed in both testicles on Doppler evaluation. In the anterior superior right testicle there is an amorphous shaped area of diminished echogenicity. A clearly defined mass is not seen. No focal abnormality of the lef t testicle. Veins superior to the right testicle are prominent but not clearly defined as a varicocele. Small lili ateral hydroceles are present. No focal scrotal wall abnormality. IMPRESSION: Sonographic findings most likely represent a right-side epididymitis and orchitis. Focal area of decreased echogenicity within the right testicle is likely related to the suspected inf ectious process. Sonographic evaluation in 3-4 weeks after medical management could be utilized to as sure no remnant focal abnormality. Intratesticular abscess is not currently suspected.
== END 2017-11-01 02:50 | disposition home or self-care (01) ==
LOC: ER 00:08
DX: N45.1 Epididymitis (principal); I10 Essential (primary) hypertension; F17.210 Nicotine dependence, cigarettes, uncomplicated
CPT/HCPCS: 76870; 81003; 99283

== ENCOUNTER 2018-02-24 19:37 | Emergency (ER) | payer OTHER ==
--- NOTE | 2018-02-24 23:32 | EDPHYS ---
Physician Documentation [facility] Name: Casey Owens Age: 47 yrs Sex: Male : 1970 Arrival Date: 02/24/2018 Time: 19:47 Bed 30 Private MD: SIMÓN MEJIAS Physician Al Braden HPI: 02/24 23:36 This 47 yrs old Male presents to ER via Ambulatory with complaints of Sore snw Throat. 23:36 The patient presents with sore throat. The patient describes throat pain as constant, snw scratchy. Onset: The symptoms/episode began/occurred 1 month(s) ago, and became persistent. Severity of symptoms: At their worst the symptoms were moderate. Associated signs and symptoms: Pertinent positives: dysphagia. The patient has experienced a previous episode. The patient has been recently seen by a physician: the patient's primary care provider, with similar presenting complaints, and apparently given a diagnosis of pharyngitis, was given a prescription for antibiotics, given steroids, but the patient's symptoms have persisted. Historical: - Allergies: 20:00 No Known Allergies; aj - Home Meds: 20:00 esomeprazole magnesium Oral [Active]; metoprolol succinate 25 mg Oral Tb24 [Active]; aj - PMHx: 20:00 GERD; Hypertension; Low Testosterone; aj - PSHx: 20:00 Vasectomy; Right hand; aj - Immunization history:: Adult Immunizations up to date. - Social history:: Smoking status: Patient uses tobacco products, smokes one-half pack cigarettes per day, smokes one pack cigarettes per day. - Ebola Screening: : Patient negative for fever greater than or equal to 101.5 degrees Fahrenheit, and additional compatible Ebola Virus Disease symptoms Patient denies exposure to infectious person Patient denies travel to an Ebola-affected area in the 21 days before illness onset No symptoms or risks identified at this time. ROS: 23:35 Constitutional: Negative for fever, chills, and weight loss, Eyes: Negative for injury, snw pain, redness, and discharge, Neck: Negative for injury, pain, and swelling, Cardiovascular: Negative for chest pain, palpitations, and edema, Respiratory: Negative for shortness of breath, cough, wheezing, and pleuritic chest pain, Abdomen/GI: Negative for abdominal pain, nausea, vomiting, diarrhea, and constipation, Back: Negative for injury and pain, : Negative for injury, bleeding, discharge, and swelling, MS/Extremity: Negative for injury and deformity, Skin: Negative for injury, rash, and discoloration, Neuro: Negative for headache, weakness, numbness, tingling, and seizure. 23:35 ENT: Positive for dental pain, nasal discharge, sore throat. Exam: 23:33 Constitutional: This is a well developed, well nourished patient who is awake, alert, snw and in no acute distress. Head/Face: Normocephalic, atraumatic. Eyes: Pupils equal round and reactive to light, extra-ocular motions intact. Lids and lashes normal. Conjunctiva and sclera are non-icteric and not injected. Cornea within normal limits. Periorbital areas with no swelling, redness, or edema. Neck: Trachea midline, no thyromegaly or masses palpated, and no cervical lymphadenopathy. Supple, full range of motion without nuchal rigidity, or vertebral point tenderness. No Meningismus. Chest/axilla: Normal chest wall appearance and motion. Nontender with no deformity. No lesions are appreciated. Cardiovascular: Regular rate and rhythm with a normal S1 and S2. No gallops, murmurs, or rubs. Normal PMI, no JVD. No pulse deficits. Respiratory: Lungs have equal breath sounds bilaterally, clear to auscultation and percussion. No rales, rhonchi or wheezes noted. No increased work of breathing, no retractions or nasal flaring. Abdomen/GI: Soft, non-tender, with normal bowel sounds. No distension or tympany. No guarding or rebound. No evidence of tenderness throughout. Back: No spinal tenderness. No costovertebral tenderness. Full range of motion. Skin: Warm, dry with normal turgor. Normal color with no rashes, no lesions, and no evidence of cellulitis. MS/ Extremity: Pulses equal, no cyanosis. Neurovascular intact. Full, normal range of motion. Neuro: Awake and alert, GCS 15, oriented to person, place, time, and situation. Cranial nerves II-XII grossly intact. Motor strength 5/5 in all extremities. Sensory grossly intact. Cerebellar exam normal. Normal gait. 23:33 ENT: External ear(s): are unremarkable, Ear canal(s): are normal, TM's: no acute changes, Nose: is normal, Mouth: is normal, Posterior pharynx: Uvula: edematous, mild, Voice: is normal. Vital Signs: 20:00 BP 178 / 98; Pulse 68; Resp 20; Temp 98.8; Pulse Ox 99% on R/A; Weight 117.93 kg; aj Height 6 ft. 0 in. (182.88 cm); 23:39 BP 165 / 70; Pulse 69; Resp 18; Pulse Ox 100% on R/A; Pain 2/10; mg2 20:00 Body Mass Index 35.26 (117.93 kg, 182.88 cm) aj MDM: 23:14 Patient medically screened. snw 23:33 Data reviewed: vital signs, nurses notes. Data interpreted: Pulse oximetry: on room air snw is 99 %. Interpretation: normal. Counseling: I had a detailed discussion with the patient and/or guardian regarding: the historical points, exam findings, and any diagnostic results supporting the discharge/admit diagnosis, the presence of at least one elevated blood pressure reading (>120/80) during this emergency department visit, lab results, the need for outpatient follow up, to return to the emergency department if symptoms worsen or persist or if there are any questions or concerns that arise at home, smoking cessation. Special discussion: I have referred the patient to see his PCP for further evaluation of high blood pressure. Based on the history and exam findings, there is no indication for further emergent testing or inpatient evaluation. I discussed with the patient/guardian the need to see the ENT specialist for further evaluation of the symptoms. continued dysphagia post antibiotic/steroid therapy. 23:37 ED course: encouraged to f/u ENT, smoker, no resolution of s/s post tx x one month. snw 02/24 20:03 Order name: Strep snw 02/24 20:04 Order name: Group A Streptococcus Rapid Sc; Complete Time: 22:01 EDMS 02/24 21:59 Order name: Throat Culture EDMS Administered Medications: 23:38 Drug: Decadron 8 mg Route: PO; mg2 23:38 Follow up: Response: No adverse reaction; Medication administered at discharge. mg2 23:38 Drug: Clindamycin 300 mg Route: PO; mg2 23:38 Follow up: Response: No adverse reaction; Medication administered at discharge. mg2 Disposition: 02/24/18 23:31 Discharged to Home. Impression: Dental caries, Acute pharyngitis. - Condition is Stable. - Discharge Instructions: Dental Pain, Pharyngitis, Smoking Hazards, Diet and Dental Disease, Rehydration, Adult. - Prescriptions for Clindamycin HCl 300 mg Oral Capsule - take 1 capsule by ORAL route every 6 hours for 10 days; 40 capsule. Zyrtec 10 mg Oral Tablet - take 1 tablet by ORAL route once daily As needed; 20 tablet. Tessalon Perles 100 mg Oral Capsule - take 1 capsule by ORAL route every 8 hours As needed; 15 capsule. - Medication Reconciliation Form, Thank You Letter, Antibiotic Education, Prescription Opioid Use form. - Follow up: Vale Leigh MD; When: 5 - 6 days; Reason: Recheck today's complaints, Continuance of care. Addendum: 02/27/2018 06:46 Co-signature as Attending Physician, Al Braden MD. g s Signatures: Dispatcher [employer] EDHoney Florez RN RN Carmen Leon, [employer]Csnw Al Braden MD MD Vasyl Parker RN RN mg2 Corrections: (The following items were deleted from the chart) 02/24 23:40 23:31 02/24/2018 23:31 Discharged to Home. Impression: Dental caries; Acute mg2 pharyngitis. Condition is Stable. Forms are Medication Reconciliation Form, Thank You Letter, Antibiotic Education, Prescription Opioid Use. Follow up: Vale Leigh; When: 5 - 6 days; Reason: Recheck today's complaints, Continuance of care. snw
--- NOTE | 2018-02-24 23:32 | ER ---
Nurse's Notes [facility] Name: Casey Owens Age: 47 yrs Sex: Male : 1970 Arrival Date: 02/24/2018 Time: 19:47 Bed 30 Private MD: SIMÓN MEJIAS Diagnosis: Dental caries;Acute pharyngitis Presentation: 02/24 19:57 Presenting complaint: Patient states: Sore throat for 1 month. Patient reports swelling aj sensation in throat. Throat is reddened with no swelling or patches noted at this time. Airway is patent. Patient saw PCP for this complaint and was DX with strep and completed steroids and ABX, no improvement. Transition of care: patient was not received from another setting of care. Onset of symptoms was January 23, 2018. Risk Assessment: Do you want to hurt yourself or someone else? Patient reports no desire to harm self or others. Initial Sepsis Screen: Does the patient meet any 2 criteria? No. Patient's initial sepsis screen is negative. Does the patient have a suspected source of infection? No. Patient's initial sepsis screen is negative. Care prior to arrival: None. 19:57 Method Of Arrival: Ambulatory 19:57 Acuity: CARYN 4 aj Triage Assessment: 20:00 General: Appears in no apparent distress. comfortable, Behavior is calm, cooperative, aj appropriate for age. Pain: Complains of pain in left aspect of posterior pharynx and right aspect of posterior pharynx. EENT: Throat is clear is reddened Reports pain when swallowing. Neuro: Level of Consciousness is awake, alert, obeys commands, Oriented to person, place, time, situation, Appropriate for age. Respiratory: Airway is patent Respiratory effort is even, unlabored, Respiratory pattern is regular, symmetrical. Derm: Skin is intact, is healthy with good turgor, Skin is pink, warm \T\ dry. normal. Historical: - Allergies: 20:00 No Known Allergies; aj - Home Meds: 20:00 esomeprazole magnesium Oral [Active]; metoprolol succinate 25 mg Oral Tb24 [Active]; aj - PMHx: 20:00 GERD; Hypertension; Low Testosterone; aj - PSHx: 20:00 Vasectomy; Right hand; aj - Immunization history:: Adult Immunizations up to date. - Social history:: Smoking status: Patient uses tobacco products, smokes one-half pack cigarettes per day, smokes one pack cigarettes per day. - Ebola Screening: : Patient negative for fever greater than or equal to 101.5 degrees Fahrenheit, and additional compatible Ebola Virus Disease symptoms Patient denies exposure to infectious person Patient denies travel to an Ebola-affected area in the 21 days before illness onset No symptoms or risks identified at this time. Screenin:12 Abuse screen: Denies threats or abuse. Denies injuries from another. Nutritional mg2 screening: No deficits noted. Tuberculosis screening: No symptoms or risk factors identified. Fall Risk None identified. Assessment: 23:22 Respiratory: Airway is patent Respiratory effort is even, unlabored, Breath sounds are mg2 clear. EENT: Throat is reddened bilaterally. Vital Signs: 20:00 BP 178 / 98; Pulse 68; Resp 20; Temp 98.8; Pulse Ox 99% on R/A; Weight 117.93 kg; aj Height 6 ft. 0 in. (182.88 cm); 23:39 BP 165 / 70; Pulse 69; Resp 18; Pulse Ox 100% on R/A; Pain 2/10; mg2 20:00 Body Mass Index 35.26 (117.93 kg, 182.88 cm) aj ED Course: 19:47 Patient arrived in ED. mr 19:48 SIMÓN MEJIAS is Private Physician. mr 19:59 Triage completed. aj 20:00 Arm band placed on left wrist. Patient placed in waiting room, Patient notified of wait aj time. 20:03 Carm[facility] Ruiz F[facility]-C [facility]. snw 20:03 Al Braden MD is Attending Physician. snw 23:11 Vasyl Parker RN is Primary Nurse. mg2 23:12 Patient has correct armband on for positive identification. Bed in low position. Side mg2 rails up X 1. Pulse ox on. NIBP on. 23:12 No provider procedures requiring assistance completed. Patient did not have IV access mg2 during this emergency room visit. 23:30 Vale Leigh MD is Referral Physician. snw Administered Medications: 23:38 Drug: Decadron 8 mg Route: PO; mg2 23:38 Follow up: Response: No adverse reaction; Medication administered at discharge. mg2 23:38 Drug: Clindamycin 300 mg Route: PO; mg2 23:38 Follow up: Response: No adverse reaction; Medication administered at discharge. mg2 Outcome: 23:31 Discharge ordered by . snw 23:39 Discharged to home ambulatory, with family. mg2 23:39 Condition: stable 23:39 Discharge instructions given to patient, family, Instructed on discharge instructions, follow up and referral plans. medication usage, benefits of quitting smoking, Demonstrated understanding of instructions, follow-up care, medications, Prescriptions given X 3. 23:40 Patient left the ED. mg2 Signatures: Honey Tariq, RN RN Caremn Leon, [employer]-C [employer]-Kati Limon mr Vasyl Parker RN RN mg2
[2018-02-24] MEDS ORDERED: DEXAMETHASONE 4 MG TAB ONE (23:40)
[2018-02-24] MEDS ORDERED: CLINDAMYCIN HCL 150 MG CAP ONE (23:41)
[2018-02-25 01:51] VITALS: TEMP 98.8
[2018-02-25 01:52] VITALS: BP 165/70; O2SAT 100
== END 2018-02-24 23:40 | disposition home or self-care (01) ==
LOC: ER 19:37
DX: K02.9 Dental caries, unspecified (principal); I10 Essential (primary) hypertension; F17.210 Nicotine dependence, cigarettes, uncomplicated
CPT/HCPCS: 87070; 87081; 99283

== ENCOUNTER 2018-06-07 18:06 | Emergency (ER) | payer OTHER ==
[2018-06-07 19:51] LABS: Urine Bacteria <20 /HPF (NONE SEEN); Urine RBC <5 /HPF (NONE SEEN)
[2018-06-07 19:52] LABS: Urine Culture Reflex Order NOT NEEDED; Urine Mucus 1+ /HPF (NONE SEEN)
[2018-06-07 20:16] LABS: Absolute Lymphocytes (CBC) 2.7 K/uL (0.7-4.9); Absolute Monocytes 0.6 K/uL (0.1-1.3); Absolute Neutrophil 5.1 K/uL (1.8-8.0); Basophils % 1.7 % (0-1.3); Eosinophils % 3.8 % (0-4.4); Hematocrit 53.8 % (39.6-49.0); Lymphocytes % 30.3 % (15.3-44.8); MPV 8.4 fL (7.6-11.3); Monocytes % 7.1 % (3.3-12.3)
[2018-06-07 20:32] LABS: Urine Blood NEGATIVE (NEG); Urine Glucose 1+ (NEG); Urine Protein 1+ (NEG)
[2018-06-07 20:39] LABS: Potassium 3.9 mmol/L (3.5-5.1); Thyroid Stimulating Hormone 1.06 uIU/mL (0.360-3.740)
[2018-06-07] MEDS ORDERED: NA CHLORIDE 0.9% 1,000 ML ONE (20:57)
[2018-06-07 21:01] LABS: Hypersegmented Neutrophils 1+; Platelet Estimate ADEQ
[2018-06-07 21:02] LABS: Blood Morphology Comment NOT SEEN (NOT SEEN)
--- NOTE | 2018-06-07 22:50 | EDPHYS ---
Physician Documentation [facility] Name: Casey Owens Age: 47 yrs Sex: Male : 1970 Arrival Date: 06/07/2018 Time: 18:09 Bed 13 Private MD: SIMÓN MEJIAS ED Physician Manuel Hughes HPI: 06/07 23:29 This 47 yrs old Male presents to ER via Ambulatory with complaints of snw Weakness. 23:29 The patient presents to the emergency department with weakness of the fatigue, malaise. snw Onset: The symptoms/episode began/occurred months ago. Context: occurred at home. Associated signs and symptoms: Pertinent positives: weakness. Severity of symptoms: At their worst the symptoms were moderate. Current symptoms: pt with continued fatigue. The patient has experienced similar episodes in the past, chronically. PCP and testosterone clinic. Historical: - Allergies: 18:22 No Known Allergies; aa5 - Home Meds: 18:52 esomeprazole magnesium Oral [Active]; losartan oral oral [Active]; metformin 500 mg jl7 Oral Tb24 2 tabs once daily [Active]; phentermine 37.5 mg oral cap [Active]; testosterone buccal buccal [Active]; - PMHx: 18:22 GERD; Hypertension; low testosterone; Undiagnosed autoimmune disorder; aa5 - PSHx: 18:22 Vasectomy; Right hand; aa5 - Immunization history:: Flu vaccine is not up to date. - Social history:: Smoking status: Patient uses tobacco products, smokes two packs cigarettes per day. - Ebola Screening: : No symptoms or risks identified at this time. ROS: 23:28 Eyes: Negative for injury, pain, redness, and discharge, ENT: Negative for injury, snw pain, and discharge, Neck: Negative for injury, pain, and swelling, Cardiovascular: Negative for chest pain, palpitations, and edema, Respiratory: Negative for shortness of breath, cough, wheezing, and pleuritic chest pain, Abdomen/GI: Negative for abdominal pain, nausea, vomiting, diarrhea, and constipation, Back: Negative for injury and pain, : Negative for injury, bleeding, discharge, and swelling, MS/Extremity: Negative for injury and deformity, Skin: Negative for injury, rash, and discoloration, Neuro: Negative for headache, weakness, numbness, tingling, and seizure. 23:28 Constitutional: Positive for body aches, fatigue, malaise. Exam: 23:26 Constitutional: This is a well developed, well nourished patient who is awake, alert, snw and in no acute distress. Head/Face: Normocephalic, atraumatic. Eyes: Pupils equal round and reactive to light, extra-ocular motions intact. Lids and lashes normal. Conjunctiva and sclera are non-icteric and not injected. Cornea within normal limits. Periorbital areas with no swelling, redness, or edema. ENT: Nares patent. No nasal discharge, no septal abnormalities noted. Tympanic membranes are normal and external auditory canals are clear. Oropharynx with no redness, swelling, or masses, exudates, or evidence of obstruction, uvula midline. Mucous membranes moist. Neck: Trachea midline, no thyromegaly or masses palpated, and no cervical lymphadenopathy. Supple, full range of motion without nuchal rigidity, or vertebral point tenderness. No Meningismus. Chest/axilla: Normal chest wall appearance and motion. Nontender with no deformity. No lesions are appreciated. Cardiovascular: Regular rate and rhythm with a normal S1 and S2. No gallops, murmurs, or rubs. Normal PMI, no JVD. No pulse deficits. Respiratory: Lungs have equal breath sounds bilaterally, clear to auscultation and percussion. No rales, rhonchi or wheezes noted. No increased work of breathing, no retractions or nasal flaring. Abdomen/GI: Soft, non-tender, with normal bowel sounds. No distension or tympany. No guarding or rebound. No evidence of tenderness throughout. Back: No spinal tenderness. No costovertebral tenderness. Full range of motion. Skin: Warm, dry with normal turgor. Normal color with no rashes, no lesions, and no evidence of cellulitis. MS/ Extremity: Pulses equal, no cyanosis. Neurovascular intact. Full, normal range of motion. Neuro: Awake and alert, GCS 15, oriented to person, place, time, and situation. Cranial nerves II-XII grossly intact. Motor strength 5/5 in all extremities. Sensory grossly intact. Cerebellar exam normal. Normal gait. 23:26 Psych: Behavior/mood is anxious. Vital Signs: 18:22 BP 136 / 80; Pulse 92; Resp 16 S; Temp 97.9(TE); Pulse Ox 99% on R/A; Weight 120.2 kg aa5 (R); Height 6 ft. 0 in. (182.88 cm) (R); Pain 7/10; 19:30 BP 131 / 88; Pulse 86; Resp 18; Pulse Ox 98% on R/A; aj1 20:11 BP 143 / 81; Pulse 83; Resp 18; Pulse Ox 97% on R/A; mt 20:48 BP 143 / 79; Pulse 81; Resp 18; Pulse Ox 98% on R/A; aj1 21:45 BP 151 / 86; Pulse 70; Resp 18; Pulse Ox 100% on R/A; aj1 22:42 BP 146 / 83; Pulse 75; Resp 18; Pulse Ox 100% on R/A; aj1 18:22 Body Mass Index 35.94 (120.20 kg, 182.88 cm) aa5 MDM: 18:48 Patient medically screened. nolan 23:27 Data reviewed: vital signs, nurses notes. Data interpreted: Pulse oximetry: on room air snw is 100 %. Interpretation: normal. Counseling: I had a detailed discussion with the patient and/or guardian regarding: the historical points, exam findings, and any diagnostic results supporting the discharge/admit diagnosis, lab results, the need for outpatient follow up, for definitive care. Response to treatment: There is no appreciated change of the patient's symptoms at this time. Special discussion: I have referred the patient to see his PCP for further evaluation of high blood pressure. Based on the history and exam findings, there is no indication for further emergent testing or inpatient evaluation. I discussed with the patient/guardian the need to see the neurologist for further evaluation of the symptoms. I discussed with the patient/guardian the need to see the primary care provider for further evaluation of the symptoms. 06/07 19:08 Order name: Urine Culture snw 06/07 19:08 Order name: Urine Microscopic Only; Complete Time: 19:56 snw 06/07 19:08 Order name: CBC with Diff; Complete Time: 21:09 snw 06/07 19:08 Order name: Chem 7; Complete Time: 20:41 snw 06/07 19:08 Order name: [place] Screen Profile; Complete Time: 20:52 snw 06/07 19:08 Order name: TSH; Complete Time: 20:41 snw 06/07 19:08 Order name: Urine Dipstick-Ancillary (obtain specimen); Complete Time: 19:25 snw 06/07 19:28 Order name: Urine Dipstick--Ancillary (enter results); Complete Time: 20:41 2 06/07 20:19 Order name: Manual Differential; Complete Time: 21:09 EDMS Administered Medications: 20:48 Drug: NS 0.9% 1000 ml Route: IV; Rate: 1 bolus; Site: right antecubital; aj1 23:20 Follow up: Response: No adverse reaction; IV Status: Completed infusion; IV Intake: ea 1000ml Disposition: 06/07/18 22:49 Discharged to Home. Impression: Malaise and fatigue, Volume depletion. - Condition is Stable. - Discharge Instructions: Dehydration, Adult, Hypertension, Fatigue, Rehydration, Adult. - Work release form, Medication Reconciliation Form, Thank You Letter, Antibiotic Education, Prescription Opioid Use form. - Follow up: SIMÓN MEJIAS; When: 1 - 2 days; Reason: Recheck today's complaints, Continuance of care, Re-evaluation by your physician. Signatures: Dispatcher [employer] EDSaida Mckeon RN RN aj1 Manuel Hughes MD MD cha Therrien, Shelly, [employer]-C [employer]-Csnw Sonja Castano, RN RN aa5 Roberth Puente RN RN jl7 Mayra Hernandez RN RN ea Corrections: (The following items were deleted from the chart) 23:31 22:49 06/07/2018 22:49 Discharged to Home. Impression: Malaise and fatigue; Volume ea depletion. Condition is Stable. Forms are Medication Reconciliation Form, Thank You Letter, Antibiotic Education, Prescription Opioid Use. Follow up: SIMÓN MEJIAS; When: 1 - 2 days; Reason: Recheck today's complaints, Continuance of care, Re-evaluation by your physician. snw
--- NOTE | 2018-06-07 22:50 | ER ---
Nurse's Notes [facility] Name: Casey Owens Age: 47 yrs Sex: Male : 1970 Arrival Date: 06/07/2018 Time: 18:09 Bed 13 Private MD: SIMÓN MEJIAS Diagnosis: Malaise and fatigue;Volume depletion Presentation: 06/07 18:21 Presenting complaint: Patient states: "I've been feeling weak, lethargic, all my aa5 muscles ache, and I feel hot and it's been going on for months but today it's been way worse". Pt denies cough. Transition of care: patient was not received from another setting of care. Care prior to arrival: None. 18:21 Method Of Arrival: Ambulatory aa5 18:21 Acuity: CARYN 3 aa5 20:49 Risk Assessment: Do you want to hurt yourself or someone else? Patient reports no aj1 desire to harm self or others. Initial Sepsis Screen: Does the patient meet any 2 criteria? No. Patient's initial sepsis screen is negative. Does the patient have a suspected source of infection? No. Patient's initial sepsis screen is negative. 20:49 Onset of symptoms was 2019. aj1 Historical: - Allergies: 18:22 No Known Allergies; aa5 - Home Meds: 18:52 esomeprazole magnesium Oral [Active]; losartan oral oral [Active]; metformin 500 mg jl7 Oral Tb24 2 tabs once daily [Active]; phentermine 37.5 mg oral cap [Active]; testosterone buccal buccal [Active]; - PMHx: 18:22 GERD; Hypertension; low testosterone; Undiagnosed autoimmune disorder; aa5 - PSHx: 18:22 Vasectomy; Right hand; aa5 - Immunization history:: Flu vaccine is not up to date. - Social history:: Smoking status: Patient uses tobacco products, smokes two packs cigarettes per day. - Ebola Screening: : No symptoms or risks identified at this time. Screenin:52 Abuse screen: Denies threats or abuse. Denies injuries from another. Nutritional jl7 screening: No deficits noted. Tuberculosis screening: No symptoms or risk factors identified. Fall Risk None identified. Assessment: 18:52 General: Appears in no apparent distress. uncomfortable, Behavior is calm, cooperative, jl7 appropriate for age. Pain: Complains of pain in all over body aches Pain currently is 7 out of 10 on a pain scale. Neuro: Level of Consciousness is awake, alert, obeys commands, Oriented to person, place, time, situation. Cardiovascular: Patient's skin is warm and dry. edema noted to bilateral eyes. Respiratory: Airway is patent Respiratory effort is even, unlabored, Respiratory pattern is regular, symmetrical. GI: No signs and/or symptoms were reported involving the gastrointestinal system. : No signs and/or symptoms were reported regarding the genitourinary system. EENT: No signs and/or symptoms were reported regarding the EENT system. Derm: Skin is pink, warm \\T\\ dry. Musculoskeletal: No signs and/or symptoms reported regarding the musculoskeletal system. 19:30 General: Appears in no apparent distress. uncomfortable, Behavior is calm, cooperative, aj1 appropriate for age, Reports general malaise. Neuro: Level of Consciousness is awake, alert, obeys commands, Oriented to person, place, time, situation. Cardiovascular: Patient's skin is warm and dry. Respiratory: Airway is patent Respiratory effort is even, unlabored, Respiratory pattern is regular, symmetrical. GI: No signs and/or symptoms were reported involving the gastrointestinal system. : No signs and/or symptoms were reported regarding the genitourinary system. EENT: No signs and/or symptoms were reported regarding the EENT system. Derm: No signs and/or symptoms reported regarding the dermatologic system. Skin is pink, warm \\T\\ dry. normal. Musculoskeletal: No signs and/or symptoms reported regarding the musculoskeletal system. Circulation, motion, and sensation intact. 20:48 Reassessment: Patient appears in no apparent distress at this time. No changes from aj1 previously documented assessment. Patient and/or family updated on plan of care and expected duration. Pain level reassessed. Patient is alert, oriented x 3, equal unlabored respirations, skin warm/dry/pink. 21:45 Reassessment: Patient and/or family updated on plan of care and expected duration. Pain aj1 level reassessed. General: Appears in no apparent distress. uncomfortable, Behavior is calm, cooperative, appropriate for age. Neuro: Level of Consciousness is awake, alert, obeys commands, Oriented to person, place, time, situation. Cardiovascular: Patient's skin is warm and dry. Respiratory: Airway is patent Respiratory effort is even, unlabored, Respiratory pattern is regular, symmetrical. Derm: Skin is pink, warm \\T\\ dry. normal. Musculoskeletal: Circulation, motion, and sensation intact. 22:40 Reassessment: Patient appears in no apparent distress at this time. No changes from aj1 previously documented assessment. Patient and/or family updated on plan of care and expected duration. Pain level reassessed. Patient is alert, oriented x 3, equal unlabored respirations, skin warm/dry/pink. 23:27 Reassessment: Patient appears in no apparent distress at this time. No changes from aj1 previously documented assessment. Patient and/or family updated on plan of care and expected duration. Pain level reassessed. Patient is alert, oriented x 3, equal unlabored respirations, skin warm/dry/pink. 23:28 Reassessment: Patient and/or family updated on plan of care and expected duration. Pain ea level reassessed. Patient is alert, oriented x 3, equal unlabored respirations, skin warm/dry/pink. Discharge instructions given to patient, verbalized the understanding of instruction Patient states feeling better. Patient states symptoms have improved. Vital Signs: 18:22 BP 136 / 80; Pulse 92; Resp 16 S; Temp 97.9(TE); Pulse Ox 99% on R/A; Weight 120.2 kg aa5 (R); Height 6 ft. 0 in. (182.88 cm) (R); Pain 7/10; 19:30 BP 131 / 88; Pulse 86; Resp 18; Pulse Ox 98% on R/A; aj1 20:11 BP 143 / 81; Pulse 83; Resp 18; Pulse Ox 97% on R/A; mt 20:48 BP 143 / 79; Pulse 81; Resp 18; Pulse Ox 98% on R/A; aj1 21:45 BP 151 / 86; Pulse 70; Resp 18; Pulse Ox 100% on R/A; aj1 22:42 BP 146 / 83; Pulse 75; Resp 18; Pulse Ox 100% on R/A; aj1 18:22 Body Mass Index 35.94 (120.20 kg, 182.88 cm) aa5 ED Course: 18:09 Patient arrived in ED. mr 18:09 SIMÓN MEJIAS is Private Physician. mr 18:21 Triage completed. aa5 18:21 Arm band placed on. aa5 18:32 Puente, Jahala, RADHA is Primary Nurse. jl7 18:47 Carmen Ruiz FNP-C is [facility]. snw 18:47 Manuel Hughes MD is Attending Physician. snw 18:52 Patient has correct armband on for positive identification. Bed in low position. Call jl7 light in reach. Side rails up X 1. 19:01 Primary Nurse role handed off by Roberth Puente RN jlCorina 19:25 Inserted saline lock: 20 gauge in right antecubital area, using aseptic technique. vt Blood collected. 19:30 Saida Khoury, RN is Primary Nurse. aj1 22:49 SIMÓN MEJIAS is Referral Physician. snw 23:26 IV discontinued, intact, bleeding controlled, No redness/swelling at site. Pressure ea dressing applied. 23:27 No provider procedures requiring assistance completed. aj1 Administered Medications: 20:48 Drug: NS 0.9% 1000 ml Route: IV; Rate: 1 bolus; Site: right antecubital; aj1 23:20 Follow up: Response: No adverse reaction; IV Status: Completed infusion; IV Intake: ea 1000ml Intake: 23:20 IV: 1000ml; Total: 1000ml. ea Outcome: 22:49 Discharge ordered by . snw 23:29 Discharged to home ambulatory, with significant other. ea 23:29 Condition: improved 23:29 Discharge instructions given to patient, Instructed on discharge instructions, follow up and referral plans. Demonstrated understanding of instructions, follow-up care. 23:31 Patient left the ED. ea Signatures: Saida Khoury, RN RN aj1 Carmen Ruiz FNP-C FNP-Nicolle Kati Finley, Sonja RN RADHA aa5 Roberth Puente, RN RN Vianey Polanco mt, Elena, RN RN ea
[2018-06-07 23:40] VITALS: TEMP 97.9
[2018-06-07 23:45] VITALS: O2SAT 100
[2018-06-07 23:47] VITALS: BP 146/83
== END 2018-06-07 23:31 | disposition home or self-care (01) ==
LOC: ER 18:06
DX: E86.9 Volume depletion, unspecified (principal); R53.81 Other malaise; R53.83 Other fatigue; F17.210 Nicotine dependence, cigarettes, uncomplicated; I10 Essential (primary) hypertension; K21.9 Gastro-esophageal reflux disease without esophagitis
CPT/HCPCS: 36415; 80048; 81003; 81015; 84443; 85025; 86308; 87086; 87088; 96360; 96361; 99284; J7030

== ENCOUNTER 2018-10-22 19:25 | Emergency (ER) | payer OTHER ==
--- OUTSIDE RECORDS SUMMARY | 2018-10-22 19:27 | XMS REPORT | Summary of Care ---
:1970 Author Organization [facility] Address [address] [place] [address]- Encounter HQ Luca(VY) [id number] Date(s): 10/13/18 - 10/13/18 [facility] [address], [place] [address]- [phone] Discharge Disposition: Home or Self Care Attending Physician: Yoni Castillo MD Referring Physician: Estevan Porter MD Vital Signs Most recent to oldest [Reference Range]: 1 Height 182.88 cm (10/13/18 3:11 PM) Blood Pressure [90-140/60-90 mmHg] 106/57 mmHg (10/13/18 3:11 PM) Respiratory Rate [14-20 BRMIN] 16 BRMIN (10/13/18 3:11 PM) Peripheral Pulse Rate [60-100 bpm] 80 bpm (10/13/18 3:11 PM) Weight 116.364 kg (10/13/18 3:11 PM) Body Mass Index 34.79 m2 (10/13/18 3:11 PM) Problem List Condition Effective Dates Status Health Status Informant Autoimmune disorder(Confirmed) Active Hypertension(Confirmed) Active Hypoglycemia(Confirmed) Active Migraines(Confirmed) Active Morbid obesity(Confirmed) Active Myalgia(Confirmed) Active Paresthesia(Confirmed) Active Photosensitivity(Confirmed) Resolved Photosensitivity due to Active sun(Confirmed) Pre-diabetes(Confirmed) Active Allergies, Adverse Reactions, Alerts No Known Medication Allergies Medications No Known Medications Results No data available for this section Immunizations No data available for this section Procedures Procedure Date Related Diagnosis Body Site Status Cystectomy Completed Vasectomy Completed Social History Social History Type Response Substance Abuse 1 Employment/School Status: Employed. Work/School description: [employer]. Operates hazardous equipment: Yes. Workplace hazards: Repetitive motion.2 Alcohol 3 Smoking Status Current every day smoker; Exposure to Tobacco Smoke Unable to obtain; Cigarette Smoking Last 365 Days Unable to obtain; Reg Smoking Cessation Counseling No; Other Tobacco Frequency 1 pk a day; entered on: 10/13/18 1Used crack cocaine for a yr at the age of 89Can release medical information to Anabel Owens & Dr. Porter-PCP32 bloodymary's a wk Assessment and Plan No data available for this section
--- OUTSIDE RECORDS SUMMARY | 2018-10-22 19:27 | XMS REPORT | Summary of Care ---
:1970 Author Organization [facility] Address [address] [place] [address]- Encounter HQ Luca(VY) [id number] Date(s): 09/07/18 - 09/07/18 [facility] [address], [place] [address]- [phone] Discharge Disposition: Home or Self Care Attending Physician: Yoni Castillo MD Referring Physician: Estevan Porter MD Vital Signs Most recent to oldest [Reference Range]: 1 Height 182.88 cm (09/07/18 3:42 PM) Blood Pressure [90-140/60-90 mmHg] 128/83 mmHg (09/07/18 3:42 PM) Respiratory Rate [14-20 BRMIN] 16 BRMIN (09/07/18 3:42 PM) Peripheral Pulse Rate [60-100 bpm] 93 bpm (09/07/18 3:42 PM) Weight 125.909 kg (09/07/18 3:42 PM) Body Mass Index 37.65 m2 (09/07/18 3:42 PM) Problem List Condition Effective Dates Status Health Status Informant Autoimmune disorder(Confirmed) Active Hypertension(Confirmed) Active Hypoglycemia(Confirmed) Active Migraines(Confirmed) Active Morbid obesity(Confirmed) Active Myalgia(Confirmed) Active Paresthesia(Confirmed) Active Photosensitivity(Confirmed) Resolved Photosensitivity due to Active sun(Confirmed) Pre-diabetes(Confirmed) Active Allergies, Adverse Reactions, Alerts No Known Medication Allergies Medications amLODIPine 5 mg, PO, Daily, 0 Refill(s) Start Date: 09/07/18 Status: OrderedbuPROPion 100 mg, PO, Daily, 0 Refill(s) Start Date: 09/07/18 Status: Orderedhydrochlorothiazide-losartan 12.5 mg-50 mg oral tablet 1 tab, PO, Daily, 0 Refill(s) Start Date: 09/07/18 Status: Orderednystatin topical TOP, TID, 100.000 Apply Bid, 0 Refill(s) Start Date: 09/07/18 Status: Orderedsildenafil 20 mg, PO, PRN, 0 Refill(s) Start Date: 09/07/18 Status: Orderedtestosterone 200 mg, IM, qWeek, 0 Refill(s) Start Date: 09/07/18 Status: Ordered Results No data available for this section [...] Frequency 1 pk a day; entered on: 09/07/18 1Used crack cocaine for a yr at the age of 89Can release medical information to Anabel Owens & Dr. Porter-PCP[address] [place] [address]'s a wk Assessment and Plan No data available for this section
--- OUTSIDE RECORDS SUMMARY | 2018-10-22 19:27 | XMS REPORT | Continuity of Care Document ---
:1970 Author Organization [facility] Care Team Providers Name Role Phone [facility] Unavailable Unavailable Problems Problem Status Onset Classification Date Comments Source Date Reported Autoimmune disorder Active Problem 10/16/2018 [facility] Hypertension Active Problem 10/16/2018 [facility] Hypoglycemia Active Problem 10/16/2018 [facility] Migraines Active Problem 10/16/2018 [facility] Morbid obesity Active Problem 10/16/2018 [facility] Myalgia Active Problem 10/16/2018 [facility] Paresthesia Active Problem 10/16/2018 [facility] Photosensitivity Resolved Problem 10/16/2018 [facility] Photosensitivity Active Problem 10/16/2018 [facility] due to sun [facility] Pre-diabetes Active Problem 10/16/2018 [facility] Medications Medication Details Route Status Patient Ordering Order Source Instructions Provider Date Nystatin TOP, TID, Active [facility] 100.000 019 [facility] Apply Bid, 0 Refill(s) sildenafil 20 mg, Active [facility] PO, PRN, 019 [facility] 0 Refill(s) Bupropion 100 mg, Active [facility] PO, 019 [facility] Daily, 0 Refill(s) Testosterone 200 mg, Active [facility] IM, 019 [facility] qWeek, 0 Refill(s) Amlodipine 5 mg, PO, Active [facility] Daily, 0 019 [facility] Refill(s) Hydrochlorothiazide 1 tab, Active [facility] 12.5 MG / Losartan PO, 019 [facility] Potassium 50 MG Oral Daily, 0 Tablet Refill(s) Allergies, Adverse Reactions, Alerts Substance Category Reaction Severity Reaction Status Date Comments Source type Reported No Known Assertion Drug [facility] Medication allergy Neuro Allergies Immunizations No Data Provided for This Section Results No Data Provided for This Section Pathology Reports No Data Provided for This Section Diagnostic Reports No Data Provided for This Section Consultation Notes No Data Provided for This Section Discharge Summaries No Data Provided for This Section History and Physicals No Data Provided for This Section Vital Signs Vital Sign Value Date Comments Source Systolic (mm Hg) 106 10/13/2018 [facility] Diastolic (mm Hg) 57 10/13/2018 [facility] BMI Calculated 34.79 10/13/2018 [facility] Weight 116.364 10/13/2018 [facility] Height 182.88 cm 10/13/2018 [facility] Respitory Rate 16 10/13/2018 [facility] Heart Rate 80 10/13/2018 [facility] Weight 125.909 09/07/2018 [facility] Height 182.88 cm 09/07/2018 [facility] BMI Calculated 37.65 09/07/2018 [facility] Heart Rate 93 09/07/2018 [facility] Systolic (mm Hg) 128 09/07/2018 [facility] Diastolic (mm Hg) 83 09/07/2018 [facility] Respitory Rate 16 09/07/2018 [facility] Encounters Location Location Encounter Encounter Reason Attending ADM DC Status Source Details Type Number For Provider Date Date Visit Outpatient [id number] Yoni 09/07 [facility] [id number] Yoni 09/07 09/08 [facility] [place] [facility] [id number] Yoni 10/13 [facility] Out[facility] [id number] Yoni 10/13 10/14 [facility] [place] [facility] [id number] Yoni 11/19 [facility] Procedures Procedure Code Date Perfomer Comments Source Cystectomy [id number] [facility] Vasectomy [id number] [facility] Assessment and Plan No Data Provided for This Section Plan of Care No Data Provided for This Section Social History Social History Date Source Social History TypeResponse 09/07/2018 [facility] Substance Abuse 1 Employment/School Status: Employed. Work/School [...] of 89Can release medical information to Anabel Orellana and Dr. Porter-PCP32 bloodymary's a wk Family History No Data Provided for This Section Advance Directives No Data Provided for This Section Functional Status No Data Provided for This Section
--- NOTE | 2018-10-22 20:52 | EDPHYS ---
Physician Documentation [facility] Name: Casey Owens Age: 47 yrs Sex: Male : 1970 Arrival Date: 10/22/2018 Time: 19:31 Bed 13 Private MD: None, None ED Physician Al Braden HPI: 10/22 20:15 This 47 yrs old Male presents to ER via Ambulatory with complaints of Neck cp Problem. 20:15 The patient or guardian complains of pain, that is acute, swelling, tenderness. The cp symptoms are located left submandibular area. 20:15 Onset: The symptoms/episode began/occurred over 1 week ago. Associated signs and cp symptoms: Pertinent positives: sore throat times 1 week, Pertinent negatives: fever, headache, dysphagia. Severity of symptoms: in the emergency department the symptoms are unchanged, despite home interventions. Historical: - Allergies: 19:41 No Known Allergies; la1 - PMHx: 19:41 GERD; Hypertension; low testosterone; Undiagnosed autoimmune disorder; la1 - Immunization history:: Adult Immunizations up to date. - Social history:: Smoking status: Patient uses tobacco products, smokes one pack cigarettes per day. - Ebola Screening: : No symptoms or risks identified at this time. ROS: 20:20 Constitutional: Negative for body aches, chills, fever, poor PO intake. cp 20:20 Eyes: Negative for injury, pain, redness, and discharge. cp 20:20 ENT: Positive for sore throat, swelling left submandibular area, Negative for drainage from ear(s), ear pain, sinus congestion, sinus pain, difficulty swallowing, difficulty handling secretions. 20:20 Neck: Negative for pain with movement, stiffness. 20:20 Respiratory: Negative for cough, shortness of breath, wheezing. 20:20 Abdomen/GI: Negative for abdominal pain, nausea, vomiting, and diarrhea. 20:20 Skin: Negative for cellulitis, rash. 20:20 Neuro: Negative for altered mental status, headache. 20:20 All other systems are negative. Exam: 20:30 Constitutional: The patient appears in no acute distress, alert, awake, non-toxic, well cp developed, well nourished. 20:30 Head/Face: Normocephalic, atraumatic. cp 20:30 Eyes: Periorbital structures: appear normal, Conjunctiva: normal, no exudate, no injection, Sclera: no appreciated abnormality, Lids and lashes: appear normal, bilaterally. 20:30 ENT: External ear(s): are unremarkable, Ear canal(s): are normal, clear, TM's: dullness, bilaterally, Nose: is normal, Mouth: Lips: moist, Oral mucosa: pink and intact, moist, Posterior pharynx: Airway: no evidence of obstruction, patent, Tonsils: with erythema, no exudate, Uvula: midline, erythema, that is moderate, exudate, is not appreciated, Voice: is normal. 20:30 Neck: ROM/movement: is normal, is supple, no range of motions limitations, no meningismus, no nuchal rigidity, Lymph nodes: lymphadenopathy is appreciated, anterior cervical nodes, left side. 20:30 Chest/axilla: Inspection: normal, Palpation: is normal, no crepitus, no tenderness. 20:30 Cardiovascular: Rate: normal, Rhythm: regular. 20:30 Respiratory: the patient does not display signs of respiratory distress, Respirations: normal, no use of accessory muscles, no retractions, no splinting, no tachypnea, labored breathing, is not present. 20:30 Skin: no rash present. Vital Signs: 19:41 BP 133 / 74; Pulse 74; Resp 16; Temp 97.1; Pulse Ox 98% on R/A; Weight 120.2 kg; Height la1 6 ft. 0 in. (182.88 cm); 20:55 BP 135 / 72; Pulse 75; Resp 16 S; Pulse Ox 98% on R/A; cc3 19:41 Body Mass Index 35.94 (120.20 kg, 182.88 cm) la1 MDM: 20:20 Patient medically screened. cp 20:30 Differential diagnosis: strep throat, tonsillitis, tonsillar abscess. cp 20:50 Data reviewed: vital signs, nurses notes, lab test result(s), and as a result, I will cp discharge patient. 20:50 Counseling: I had a detailed discussion with the patient and/or guardian regarding: the cp historical points, exam findings, and any diagnostic results supporting the discharge/admit diagnosis, lab results, to return to the emergency department if symptoms worsen or persist or if there are any questions or concerns that arise at home. 10/22 19:41 Order name: Strep la1 10/22 20:09 Order name: Throat Culture EDMS Administered Medications: No medications were administered Disposition: 10/22/18 20:50 Discharged to Home. Impression: Acute lymphadenitis of face, head and neck. - Condition is Stable. - Discharge Instructions: Lymphadenopathy. - Prescriptions for Amoxicillin 875 mg Oral Tablet - take 1 tablet by ORAL route every 12 hours for 10 days; 20 tablet. - Medication Reconciliation Form, Thank You Letter, Antibiotic Education, Prescription Opioid Use form. - Follow up: Vale Leigh MD; When: 1 week; Reason: symptoms continue. - Problem is new. - Symptoms are unchanged. Addendum: 10/24/2018 01:29 Co-signature as Attending Physician, Al Braden MD. g s Signatures: Dispatcher [employer] EDMS Clement Bruno RN RN la1 Manuel Hayden PA PA cp Al Braden MD MD Marlene Handley cc3 Corrections: (The following items were deleted from the chart) 10/22 21:10 20:50 10/22/2018 20:50 Discharged to Home. Impression: Acute lymphadenitis of face, cc3 head and neck. Condition is Stable. Forms are Medication Reconciliation Form, Thank You Letter, Antibiotic Education, Prescription Opioid Use. Follow up: Vale Leigh; When: 1 week; Reason: symptoms continue. Problem is new. Symptoms are unchanged. cp
--- NOTE | 2018-10-22 20:52 | ER ---
Nurse's Notes [facility] Name: Casey Owens Age: 47 yrs Sex: Male : 1970 Arrival Date: 10/22/2018 Time: 19:31 Bed 13 [facility] MD: None, None Diagnosis: Acute lymphadenitis of face, head and neck Presentation: 10/22 19:39 Presenting complaint: Patient states: About a week ago I started having pain in my neck la1 under my jaw line on the left then it turned in to a sore throat and now i have some swelling under my jaw line on the left. Transition of care: patient was not received from another setting of care. Onset of symptoms was October 22, 2018. Risk Assessment: Do you want to hurt yourself or someone else? Patient reports no desire to harm self or others. Initial Sepsis Screen: Does the patient meet any 2 criteria? No. Patient's initial sepsis screen is negative. Does the patient have a suspected source of infection? No. Patient's initial sepsis screen is negative. Care prior to arrival: None. 19:39 Method Of Arrival: Ambulatory la1 19:39 Acuity: CARYN 3 la1 Triage Assessment: 20:00 General: Appears in no apparent distress. uncomfortable, Behavior is calm, cooperative, cc3 appropriate for age. Pain: Denies pain. Historical: - Allergies: 19:41 No Known Allergies; la1 - PMHx: 19:41 GERD; Hypertension; low testosterone; Undiagnosed autoimmune disorder; la1 - Immunization history:: Adult Immunizations up to date. - Social history:: Smoking status: Patient uses tobacco products, smokes one pack cigarettes per day. - Ebola Screening: : No symptoms or risks identified at this time. Screenin:00 Abuse screen: Denies threats or abuse. Denies injuries from another. Nutritional cc3 screening: No deficits noted. Tuberculosis screening: No symptoms or risk factors identified. Fall Risk Ambulatory Aid- None/Bed Rest/Nurse Assist (0 pts). Gait- Normal/Bed Rest/Wheelchair (0 pts) Mental Status- Oriented to own ability (0 pts). Assessment: 20:00 General: Appears in no apparent distress. comfortable, Behavior is calm, cooperative, cc3 appropriate for age. Pain: Denies pain. Neuro: Level of Consciousness is awake, alert, obeys commands, Oriented to person, place, time, situation, Appropriate for age. Cardiovascular: Denies chest pain, Capillary refill < 3 seconds Patient's skin is warm and dry. Respiratory: Airway is patent Respiratory effort is even, unlabored, Respiratory pattern is regular, symmetrical. GI: Abdomen is round obese. : No signs and/or symptoms were reported regarding the genitourinary system. EENT: Reports palpated nodules on the neck to the jaw line. Derm: Skin is intact, is healthy with good turgor, Skin is pink, warm \T\ dry. normal. Musculoskeletal: Circulation, motion, and sensation intact. Range of motion: intact in all extremities. 21:05 Reassessment: Patient appears in no apparent distress at this time. Patient and/or cc3 family updated on plan of care and expected duration. Pain level reassessed. Patient is alert, oriented x 3, equal unlabored respirations, skin warm/dry/pink. RACHID Hayden discharged the patient home with prescription given. No IV cannula in situ. Patient left ER vitally stable and ambulatory with his . No valuables left in the patient's room. Patient denies pain at this time. Patient states feeling better. Patient states symptoms have improved. Vital Signs: 19:41 BP 133 / 74; Pulse 74; Resp 16; Temp 97.1; Pulse Ox 98% on R/A; Weight 120.2 kg; Height la1 6 ft. 0 in. (182.88 cm); 20:55 BP 135 / 72; Pulse 75; Resp 16 S; Pulse Ox 98% on R/A; cc3 19:41 Body Mass Index 35.94 (120.20 kg, 182.88 cm) la1 ED Course: 19:31 Patient arrived in ED. mr 19:31 None, None is Private Physician. mr 19:40 Triage completed. la1 19:41 Arm band placed on left wrist. la1 20:00 Marlene Handley is Primary Nurse. cc3 20:00 Patient has correct armband on for positive identification. Placed in gown. Bed in low cc3 position. Call light in reach. Side rails up X 1. Pulse ox on. NIBP on. 20:01 Manuel Hayden PA is PHCP. cp 20:01 Al Braden MD is Attending Physician. cp 20:50 Vale Leigh MD is Referral Physician. cp 21:05 No provider procedures requiring assistance completed. Patient did not have IV access cc3 during this emergency room visit. Administered Medications: No medications were administered Outcome: 20:50 Discharge ordered by . cp 21:05 Discharged to home ambulatory, with family. cc3 21:05 Condition: stable 21:05 Discharge instructions given to patient, Instructed on discharge instructions, follow up and referral plans. medication usage, Demonstrated understanding of instructions, follow-up care, medications, Prescriptions given X 1. 21:10 Patient left the ED. cc3 Signatures: Kati Finley Lee RN RN la1 Manuel Hayden PA PA cp Marlene Handley cc3
[2018-10-22 21:16] VITALS: BP 133/74; TEMP 97.1; O2SAT 98
== END 2018-10-22 21:10 | disposition home or self-care (01) ==
LOC: ER 19:25
DX: L04.0 Acute lymphadenitis of face, head and neck (principal)
CPT/HCPCS: 87070; 87081; 99283

== ENCOUNTER 2018-11-04 20:38 | Inpatient (IN) | payer OTHER ==
--- OUTSIDE RECORDS SUMMARY | 2018-11-04 20:56 | XMS REPORT | Continuity of Care Document ---
:1970 Author Organization [employer] Care Team Providers Name Role Phone [employer] Unavailable Unavailable Problems Problem Status Onset Classification [...] Comments Source Systolic (mm Hg) 106 10/13/2018 [facility] Diastolic (mm Hg) 57 10/13/2018 [facility] BMI Calculated 34.79 10/13/2018 [facility] Weight 116.364 10/13/2018 [facility] Height 182.88 cm 10/13/2018 [facility] Respitory Rate 16 10/13/2018 [facility] Heart Rate 80 10/13/2018 [facility] Weight 125.909 09/07/2018 [facility] Height 182.88 cm 09/07/2018 [facility] BMI Calculated 37.65 09/07/2018 [facility] Heart Rate 93 09/07/2018 [facility] Systolic (mm Hg) 128 09/07/2018 [facility] Diastolic (mm Hg) 83 09/07/2018 [facility] Respitory Rate 16 09/07/2018 [facility] Encounters Location Location Encounter Encounter Reason Attending ADM DC Status Source Details Type Number For Provider Date Date Visit Outpatient [id number] Yoni 09/07 [facility] [place] [facility] Outpatient [id number] Yoni 09/07 09/08 [facility] [place] Out[place] [id number] Yoni 10/13 [facility] [place] [facility] Outpatient [id number] Yoni 10/13 10/14 [facility] [place] Out[place] [id number] Yoni 11/19 [facility] [place] Procedures Procedure Code Date Perfomer Comments Source Cystectomy [id number] [facility] Vasectomy [id number] [facility] Assessment and Plan No Data Provided for This Section Plan of Care No Data Provided for This Section Social History Social History Date Source Social History TypeResponse 09/07/2018 [facility] Substance Abuse 1 Employment/School Status: Employed. [...]
[2018-11-04] MEDS ORDERED: ONDANSETRON 4 MG/2 ML VIAL IV PRN (21:39)
[2018-11-04] MEDS ORDERED: MORPHINE 2 MG/ML SYR IV PRN (21:39)
[2018-11-04] MEDS ORDERED: GLUCAGON 1 MG/VIAL IM PRN (21:45)
[2018-11-04] MEDS ORDERED: D50W 25 GM/50 ML SYRINGE IV PRN (21:45)
[2018-11-04 21:58] VITALS: BMI 33.7
[2018-11-04] MEDS ORDERED: NA CHLORIDE 0.9% 1,000 ML IV SCH (22:00)
[2018-11-04 22:13] LABS: Protime INR 0.92
[2018-11-04 22:25] LABS: Albumin 4.1 g/dL (3.4-5.0); Bilirubin Total 1.2 mg/dL (0.2-1.0); Magnesium 2.3 mg/dL (1.8-2.4); Protein, Total 7.3 g/dL (6.4-8.2)
--- NOTE | 2018-11-04 22:57 | HP ---
Date of Admission: 11/04/2018 Chief Complaint: Pain and swelling. History Of Present Illness: This is a 47-year-old male patient, who called office today with concern about pain, swelling in the umbilical region, and he was concerned about possible infection there and he was given appointment to see me today. After he was evaluated, he was admitted to the hospital. The patient gives history of small area of swelling in the umbilical region from time to time and says that every time he has that swelling he is able to push it with his finger and it goes down and so far he was asymptomatic. The last few days, he was having some coughing and as of yesterday the patient says that the swelling became more prominent. He felt like burning type of sensation over and around umbilical region and the swelling he is not able to reduce it at all and it is extremely painful. The pain is intermittent. Pain gets worse with coughing or bending or certain movements. No nausea, vomiting. No fever, chills. No constipation, diarrhea. No change in bowel habits. No fever, chills. After patient was evaluated at the office, he was admitted to the hospital. Allergies: NO KNOWN ALLERGIES. Medications: Bupropion 100 mg p.o. daily; carvedilol 3.125 mg twice a day; Nexium 40 mg p.o. daily; metformin ER 500 mg, takes 2 tablets with evening meal ; olmesartan 40 mg p.o. daily; testosterone injection 200 mg every week. Past Medical History: Significant for type 2 diabetes mellitus, vitamin D deficiency, gastroesophageal reflux disease, hypertension, testicular hypofunction, sleep apnea, hyperlipidemia. Positive BLAIR test. Allergies: NO KNOWN ALLERGIES. Review of Systems: GI: As mentioned above. All other systems reviewed and negative. Past Surgical History: Significant for surgery on the right hand fifth finger secondary to injury, removal of cyst from the scalp, and vasectomy. Family History: Significant for coronary artery disease, hypertension, stroke, schizophrenia, and rosacea. Social History: Positive for smoking. Use of alcohol socially. Physical Examination: Vital Signs: When he came into office, height 70 inches, weight 249 pounds. Blood pressure 120/79, pulse 77, respiratory rate 15, temperature 97.2. General: Awake, alert, oriented, not in distress. HEENT: Head atraumatic, normocephalic. Conjunctivae nonerythematous. Sclerae white. Mouth, no thrush or edema noted. Ears/Nose, no mass, lesion, discharge noted. Neck: Supple. No JVD, lymph nodes, bruit, thyromegaly noted. Lungs: Bilateral good equal air entry. Clear to auscultation. No rhonchi. No rales. Heart: Normal heart sounds, no murmur or gallop. Abdomen: Soft. Bowel sounds normal. No guarding, rigidity, tenderness, or distention. No hepatosplenomegaly. No bruit. Center of the abdomen over umbilical region, the patient has a small swelling approximately 5-6 cm in size. Umbilicus appears to be protruded. The patient has significant tenderness over this area with gentle palpation. This 5-6 cm swelling appears to be firm. Extremities: No leg edema. No calf tenderness. Skin: No rash, ulcer, cellulitis. Lymphatics: No lymph node enlargement in neck, supraclavicular, infraclavicular region. Neuro: No focal neurological deficit. Chest: Unremarkable. External Genitalia: Deferred. Rectal: Deferred. Laboratory Data: WBC 10.1, hemoglobin 16.9, platelets 244, PT 10.9, INR 0.92, PTT 35.3, sodium 141, potassium 4, chloride 111, bicarb 22, BUN 16, creatinine 0.98, glucose 83, liver function tests unremarkable except total bilirubin 1.2, procalcitonin less than 0.05. Impression: 1. Incarcerated umbilical hernia. 2. Type 2 diabetes mellitus. 3. Hypertension. 4. Mixed hyperlipidemia. 5. Testicular hypofunction. 6. Sleep apnea. 7. Gastroesophageal reflux disease. 8. Admit patient to hospital for further evaluation and management of this problem. Patient is appropriate for inpatient and is expected to spend 2 midnights in hospital. Home medications will be continued per order. We will not give any metformin. Start fingerstick blood sugar with sliding scale for diabetes management. We will get a CAT scan of abdomen and pelvis done tonight. Keep the patient n.p.o. after midnight start IV fluid and pain medication per order for comfort care. IV antibiotic Zosyn will be given and we will keep the patient n.p.o. after midnight, and after the CAT scan result is available, we will consider surgical consultation. Details and plan of treatment discussed with the patient. SCD was ordered for DVT prophylaxis. BIANCA/ELHAM Voice ID: [id number] [email or web address]
[2018-11-04 23:05] LABS: Basophils % 0.9 % (0-1.3); Hematocrit 50.4 % (39.6-49.0); Lymphocytes % 29.5 % (15.3-44.8); MPV 9.3 fL (7.6-11.3); RBC Red Blood Cell Count 6.09 M/uL (4.33-5.43)
[2018-11-04 23:14] LABS: Urine Appearance CLEAR; Urine Bilirubin NEGATIVE (NEG); Urine Blood NEGATIVE (NEG); Urine Color YELLOW; Urine Glucose NEGATIVE (NEG); Urine Protein NEGATIVE (NEG); Urine Specific Gravity 1.025 (1.005-1.030); Urine pH 5.5 (5.0-7.0)
[2018-11-04] MEDS: PIPER/TAZO/NS 3.375gm 3.375 GM/100 ML BAG IVPB SCH (23:20)
[2018-11-04] MEDS ORDERED: PIPER/TAZO/NS 3.375gm 6.750 GM/200 ML BAG ONE (23:24)
[2018-11-04 23:35] LABS: Urine Culture Reflex Order NOT NEEDED; Urine Mucus 2+ /HPF (NONE SEEN)
[2018-11-04 23:36] LABS: Urine Bacteria <20 /HPF (NONE SEEN); Urine RBC <5 /HPF (NONE SEEN)
[2018-11-05] MEDS: PIPER/TAZO/NS 3.375gm 3.375 GM/100 ML BAG IVPB SCH ×4 (06:08→17:41)
[2018-11-05] MEDS: INSULIN -REGULAR HUMAN 50 UNIT/0.5 ML ML SQ SCH ×3 (07:30→16:30)
[2018-11-05] MEDS ORDERED: HOME MED 1 EA UNK (Olmesartan Medoxomil [Olmesartan Medoxomil] 40 MG) PO SCH (09:00)
[2018-11-05] MEDS ORDERED: HOME MED 1 EA UNK (Esomeprazole Mag Trihydrate [Nexium] 40 MG) PO SCH (09:00)
[2018-11-05] MEDS ORDERED: CARVEDILOL 3.125 MG PO SCH (09:00)
[2018-11-05] MEDS ORDERED: HOME MED 1 EA UNK (Bupropion Hcl [Wellbutrin Sr] 100 MG) PO SCH (09:00)
--- NOTE | 2018-11-05 09:34 | RAD REPORT ---
EXAM DESCRIPTION: CT - Abdomen Pelvis W Contrast - 11/05/2018 5:54 am CLINICAL HISTORY: Stimulator umbilical hernia. COMPARISON: CT abdomen and pelvis 11/02/2015 TECHNIQUE: Axial [address] imaging of the abdomen and pelvis performed utilizing intravenous contrast. Reformatted coronal and sagittal images reviewed. A dose reduction technique was utilized with automated exposure control according to patient size. FINDINGS: LOWER THORAX: Clear lung bases. Normal cardiac size. ABDOMEN: LIVER/GALLBLADDER: Slight decreased attenuation due to very mild steatosis. No liver mass or biliary dilatation. Normal gallbladder. SPLEEN/PANCREAS: Normal spleen. Mild fatty atrophy of the pancreas. KIDNEYS/ADRENAL GLANDS: Normal adrenal glands and kidneys. RETROPERITONEAL VESSELS/NODES: Normal caliber aorta and inferior vena cava. Mild aortic atherosclero sis. No adenopathy. Mesenteric vessels are well-opacified. BOWEL: Normal stomach. The small bowel caliber is within normal limits. Normal appendix in the right lower quadrant. MESENTERY/PERITONEUM: Nonenlarged mesenteric lymph nodes. No mesenteric edema. No ascites or free ai r. There is a 2.4 cm fat-containing umbilical hernia. Hernia neck is 1.7 cm. There is induration of t he herniated fat as well as in the omentum just deep to the neck compatible with incarceration. PELVIS: BLADDER: Normal bladder. GENITAL ORGANS: Normal prostate. PERITONEUM: No pelvic free fluid or adenopathy. BONES AND SOFT TISSUES: Unremarkable lumbar spine, bony pelvis, and hips. IMPRESSION: 1. Incarcerated small fat-containing umbilical hernia without bowel involvement. 2. Mild hepatic steatosis. Electronically signed by: Jessica Randhawa DO 11/05/2018 12:11 AM CDT Due to temporary technical issues with the PACS/Fluency reporting system, reports are being signed by the in house radiologist as a courtesy to ensure prompt reporting. The interpreting radiologist is f ully responsible for the content of the report.
[2018-11-05] MEDS ORDERED: FENTANYL CITR 100 MCG/2 ML ONE (12:36)
[2018-11-05] MEDS ORDERED: ROCURONIUM 50 MG/5 ML VIAL IV ONE (12:36)
[2018-11-05] MEDS ORDERED: PROPOFOL 200 MG/20 ML VIAL IV ONE (12:36)
[2018-11-05] MEDS ORDERED: LIDOCAINE 2% MPF 5 ML VIAL ONE (12:36)
[2018-11-05] MEDS ORDERED: MIDAZOLAM HCL 2 MG/2 ML INJ ONE (12:36)
[2018-11-05] MEDS ORDERED: Ringers Lactate 1,000 ML IV ONE (13:08)
[2018-11-05] MEDS ORDERED: GLYCOPYRROLATE 0.2 MG/ML SYR ONE ×2 (13:14→13:15)
[2018-11-05] MEDS ORDERED: KETOROLAC 30 MG/ML INJ ONE (13:15)
[2018-11-05] MEDS ORDERED: NEOSTIGMINE 1 MG/ML -10 ML VIAL ONE (13:15)
[2018-11-05] MEDS ORDERED: HYDROCODONE/APAP 7.5/325 MG TAB PO PRN (13:24)
--- NOTE | 2018-11-05 13:27 | CON ---
Date of Consultation: 11/05/2018 Reason For Service: Incarcerated umbilical hernia. History Of Present Illness: This is a case of a -[id number]-buj male who comes to us with ____ umbilical tenderness with erythema involved in that area. Found to have an incarcerated umbilic al hernia and a surgical consult was obtained. He does not remember eating anything out of the usual . Doing any heavy lifting. He does remember just sneezing and coughing since he smokes and basicall y having this tender lump. He denies any dysuria, hematuria, hematochezia, or melena. Denies any re cent traveling out of the country. Denies any family member sick at home. Review of Systems: Ten points otherwise unremarkable. Allergies: NONE. Past Medical History: Diabetes, GE reflux, sleep apnea, hypertension. Medications: Reviewed. Social History: He smokes. He does not drink alcohol. The patient was counseled about smoking cess ation. Physical Examination: General: The patient is awake and alert. HEENT: Pupils are equal and reactive, anicteric. Neck: Supple. Chest: Clear. Abdomen: Soft and depressible. There is periumbilical tenderness with a skin deformity in the form of a bulging with cyanosis of the skin already consistent with incarcerated umbilical hernia. Extremities: Good capillary refill. Neuro: Cranial nerves 2-12 grossly within normal limits. CAT scan of the abdomen and pelvis shows incarcerated umbilical hernia. Assessment: This is a -[id number] patient with incarcerated strangulated tissue in umbilical hernia. We explained to him the need for repair of a hernia, very tender with benefits, alternative s, and risks including, but not limited to infection, bleeding, damage to adjacent structures as comp lication, recurrence, [place], and even . He also understands this may not relieve the symptoms. He might need more than one surgical intervention. He understands that we may or may not use mesh in t hat case, the mesh with benefits and risks fully explained to the patient, he was allowed to ask all the questions. He did allow me to use mesh. He understands the importance of smoking cessation. Al so, to losing weight and avoiding heavy lifting. ANDRIY/ELHAM Voice ID: [id number] Report ID: [id number]
--- NOTE | 2018-11-05 13:33 | EKG ---
Test Date: 2018-11-05 Test Time: 07:38:54 Lodge Officer: ESTEFANY MEASUREMENT RESULTS: Intervals: Rate: 48 OK: 138 QRSD: 82 QT: 402 QTc: 359 [place]: P: 32 OK: 138 QRS: 20 T: 86 INTERPRETIVE STATEMENTS: Marked sinus bradycardia with sinus arrhythmia Nonspecific T wave abnormality Abnormal ECG Compared to ECG 01/16/2017 22:55:36 T-wave abnormality now present Sinus rhythm no longer present Electronically Signed On 11-05-18 13:33:19 CDT by Kenroy Olsen
[2018-11-05] MEDS: HYDROMORPHONE HCL 1 MG/ML INJ ONE ×4 (13:39→13:56)
[2018-11-05 13:46] VITALS: O2SAT 97
[2018-11-05 16:57] VITALS: BP 114/69; TEMP 97.3
--- NOTE | 2018-11-06 00:39 | OP ---
Date of Procedure: 11/05/2018 Surgeon: Ty Shannon MD [employer] As[employer]er: LEWIS Moran. Preoperative Diagnosis: Incarcerated tender umbilical hernia. Postoperative Diagnosis: Strangulated umbilical hernia. Procedures: Open repair of strangulated umbilical hernia. Estimated Blood Loss: Less than 10 cc. Specimen: Hernia sac and necrotic omentum. Indications: This is a case of a 47-year-old patient, who comes to us with a very tender umbilical h ernia with redness and changing color on the skin, diagnosed with incarcerated umbilical hernia, so a surgical consult was obtained. The benefits, alternatives, and risks of repair fully explained to t he patient, which include but are not limited to infection, bleeding, damage to adjacent structures a s complication, recurrence, NV, and even . He also understands this may not relieve any symptom s. He might need more than one surgical intervention. He understands the importance of losing weigh t and smoke cessation. He signed a consent. Description Of Procedure: The patient was brought to the operating room, placed in supine position. Anesthesia was done without complication. Abdominal area was prepped and draped in sterile fashion. Local anesthesia was applied. An incision was made in the periumbilical region. Incision was negel ied down to subcutaneous tissue, we noticed a hernia sac present that was attached to umbilical skin. The hernia sac was opened, we noticed incarcerated strangulated omentum, carefully we pulled a anne le bit more through it to find nice viable site, placed a hemostat in that area and then ligated that with 0 chromic and removed the necrotic strangulated omentum. After fully inspected, we reduced the rest of the omentum into the abdominal cavity, removed the hernia sac in the fascia edges and close the area with [id number] fashion, #1 Vicryl multiple times. The area was irrigated. Subcutaneo us tissue closed with 3-0 chromic and the skin was approximated with a Steri-Strip on top. Sponge co unt and instrument counts were correct. The patient tolerated the procedure well. The patient was s ent to recovery in stable condition. The patient was explained if he gets discharged today after din ner then follow up in my office in 1 week. Call for appointment [phone]. Keep area dry for 48 hour s, then may shower. ANDRIY/ELHAM Voice ID: [id number] Report ID: [id number]
--- NOTE | 2018-11-06 04:32 | DS ---
Date of Discharge: 11/05/2018 Physical Examination: HEENT: Unremarkable. Lungs: Clear to auscultation. Heart: Sounds normal. Abdomen: Soft. Bowel sounds normal. No guarding, rigidity, distention. Extremities: No leg edema. Hospital Course: A 47-year-old very pleasant male patient, came into office with pain and swelling a round his umbilical region. Please see dictated H and P for more information. Patient was evaluated at the office. I was concerned about incarcerated umbilical hernia and patient was admitted to the hospital. After admission, routine labs were done. CBC: Chemistry, which was unremarkable. CAT sc an of abdomen did confirm incarcerated umbilical hernia. Surgery was consulted. Details were discus sed with him. Patient had surgery done for repair of this incarcerated umbilical hernia surgery. Hi s condition was stable. Dr. Shannon has released him to go home. Medically, he is stable for disch arge. Final Diagnoses: 1.Incarcerated umbilical hernia. 2.Type 2 diabetes mellitus. 3.Hypertension. 4.Mixed hyperlipidemia. 5.Testicular hypofunction. 6.Sleep apnea. 7.Gastroesophageal reflux disease. Discharge Medications And Instructions: 1.Continue prior home medications except do not take any metformin. 2.Patient to come to my office on Thursday, which is 11/08/2018 for nonfasting blood test, which will be chem-7 and patient is to follow up at my office week after next and follow up with Dr. Shannon as per his instruction. 3.Keep the area dry for 48 hours and then may shower. 4.Keep Steri-Strip intact. BIANCA/MODL Voice ID: [id number] Report ID: [id number]
== END 2018-11-05 18:30 | disposition home or self-care (01) | DRG 355 ==
LOC: 4TH 20:53
PROVIDERS: ADMIT Internal Medicine; ATTEND Internal Medicine
PROC: 0DBU0ZZ Excision of Omentum, Open Approach (ICD-10-PCS; 2018-11-05)
PROC: 0WQF0ZZ Repair Abdominal Wall, Open Approach (ICD-10-PCS; principal; 2018-11-05 12:30)
DX: K42.0 Umbilical hernia with obstruction, without gangrene (principal); E11.9 Type 2 diabetes mellitus without complications; I10 Essential (primary) hypertension; F17.210 Nicotine dependence, cigarettes, uncomplicated; G47.30 Sleep apnea, unspecified; K21.9 Gastro-esophageal reflux disease without esophagitis; E78.2 Mixed hyperlipidemia; E29.1 Testicular hypofunction; Z79.84 Long term (current) use of oral hypoglycemic drugs
CPT/HCPCS: 36415; 74177; 80053; 81001; 82962; 83735; 84145; 85025; 85610; 85730; 88302; 93005; J1170; J2250; J2270; J2543; J2704; J2710; J3010; J7030; Q9967

== ENCOUNTER 2018-11-06 00:48 | Emergency (ER) | payer OTHER ==
--- OUTSIDE RECORDS SUMMARY | 2018-11-06 00:51 | XMS REPORT | Continuity of Care Document ---
:1970 Author Organization [employer] Care Team Providers Name Role Phone [employer] Unavailable Unavailable Problems Problem Status Onset Classification [...] Comments Source Systolic (mm Hg) 106 10/13/2018 [facility] Diastolic (mm Hg) 57 10/13/2018 [facility] BMI Calculated 34.79 10/13/2018 [facility] Weight 116.364 10/13/2018 [facility] Height 182.88 cm 10/13/2018 [facility] Respitory Rate 16 10/13/2018 [facility] Heart Rate 80 10/13/2018 [facility] Weight 125.909 09/07/2018 [facility] Height 182.88 cm 09/07/2018 [facility] BMI Calculated 37.65 09/07/2018 [facility] Heart Rate 93 09/07/2018 [facility] Systolic (mm Hg) 128 09/07/2018 [facility] Diastolic (mm Hg) 83 09/07/2018 [facility] Respitory Rate 16 09/07/2018 [facility] Encounters Location Location Encounter Encounter Reason Attending ADM DC Status Source Details Type Number For Provider Date Date Visit Outpatient [id number] Yoni 09/07 [facility] [place] [facility] Outpatient [id number] Yoni 09/07 09/08 [facility] [place] [id number] Yoni 10/13 [facility] [place] [facility] Outpatient [id number] Yoni 10/13 10/14 [facility] [place] [id number] Yoni 11/19 [facility] [place] Procedures Procedure Code Date Perfomer Comments Source Cystectomy [id number] [facility] Vasectomy [id number] [facility] Assessment and Plan No Data Provided for This Section Plan of Care No Data Provided for This Section Social History Social History Date Source Social History TypeResponse 09/07/2018 [facility] Substance Abuse 1 Employment/School Status: Employed. [...]
[2018-11-06] MEDS ORDERED: FENTANYL CITR 100 MCG/2 ML ONE (01:42)
--- NOTE | 2018-11-06 02:03 | ER ---
Nurse's Notes [facility] Name: Casey Owens Age: 47 yrs Sex: Male : 1970 Arrival Date: 11/06/2018 Time: 00:53 Bed 7 Private MD: Jose Porter C Diagnosis: Other acute postprocedural pain Presentation: 11/06 01:09 Presenting complaint: Patient states: tylenol #3 taken at 0050. pt with increased abd ak1 discomfort. pt discharged from hospital at 1900 today. pt last BM was . Transition of care: patient was not received from another setting of care. Onset of symptoms was November 06, 2018. Risk Assessment: Do you want to hurt yourself or someone else? Patient reports no desire to harm self or others. Initial Sepsis Screen: Does the patient meet any 2 criteria? No. Patient's initial sepsis screen is negative. Does the patient have a suspected source of infection? No. Patient's initial sepsis screen is negative. Note pt dressing at surgical site is clean and dry. Care prior to arrival: None. 01:09 Method Of Arrival: Ambulatory ak1 01:09 Acuity: CARYN 4 ak1 Triage Assessment: 01:14 General: Appears in no apparent distress. Behavior is calm, cooperative. Pain: ak1 Complains of pain in umbilical area. EENT: No signs and/or symptoms were reported regarding the EENT system. Neuro: No deficits noted. Cardiovascular: No deficits noted. Respiratory: No deficits noted. GI: No signs and/or symptoms were reported involving the gastrointestinal system. : No signs and/or symptoms were reported regarding the genitourinary system. Derm: dressing at surgical site clean and dry. Musculoskeletal: No signs and/or symptoms reported regarding the musculoskeletal system. Historical: - Allergies: 01:14 No Known Allergies; ak1 - Home Meds: 01:14 esomeprazole magnesium 40 mg oral cpDR 1 cap [Active]; testosterone 200MG every 9 days ak1 IM buccal [Active]; metformin 500 mg Oral Tb24 2 tabs once daily [Active]; carvedilol 3.125 mg oral tab 1 tab every 12 hours [Active]; bupropion HCl 100 mg Oral TbER 1 tab 2 times per day [Active]; Nystatin Topical [Active]; olmesartan oral 40mg oral [Active]; - PMHx: 01:14 GERD; Hypertension; Undiagnosed autoimmune disorder; low testosterone; ak1 - PSHx: 01:14 Hernia repair(October 2018); ak1 - Immunization history:: Adult Immunizations unknown. - Social history:: Smoking status: Patient uses tobacco products, smokes one pack cigarettes per day. - Ebola Screening: : No symptoms or risks identified at this time. Screenin:15 Abuse screen: Denies threats or abuse. Denies injuries from another. Nutritional ak1 screening: No deficits noted. Tuberculosis screening: No symptoms or risk factors identified. Fall Risk None identified. Assessment: 01:21 Reassessment: Patient appears in no apparent distress at this time. No changes from ak1 previously documented assessment. Patient and/or family updated on plan of care and expected duration. Pain level reassessed. Patient is alert, oriented x 3, equal unlabored respirations, skin warm/dry/pink. dressing tape reinforced. 02:01 Reassessment: Patient appears in no apparent distress at this time. Patient states ak1 feeling better. Patient states symptoms have improved. Vital Signs: 01:08 BP 141 / 85; Pulse 55; Resp 16; Temp 97.7(O); Pulse Ox 99% on R/A; Weight 112.94 kg ak1 (R); Height 6 ft. 0 in. (182.88 cm) (R); Pain 9/10; 01:59 BP 128 / 86; Pulse 53; Resp 16; Temp 98; Pulse Ox 97% on R/A; Pain 4/10; ak1 01:08 Body Mass Index 33.77 (112.94 kg, 182.88 cm) ak1 ED Course: 00:53 Patient arrived in ED. mr 00:53 None, None is Private Physician. mr 00:54 Jose Porter MD is Private Physician. mr 01:07 Bethanie Seaman, RADHA is Primary Nurse. ak1 01:07 Johann De La Paz NP is PHCP. pm1 01:07 Fitz Marley MD is Attending Physician. pm1 01:08 Arm band placed on Patient placed in an exam room, on a stretcher, on pulse oximetry, ak1 Patient notified of wait time. 01:10 Triage completed. ak1 01:15 Patient has correct armband on for positive identification. Bed in low position. Call ak1 light in reach. Side rails up X 1. Pulse ox on. NIBP on. 01:59 No provider procedures requiring assistance completed. Patient did not have IV access ak1 during this emergency room visit. 02:01 Ty Shannon MD is Referral Physician. pm1 Administered Medications: 01:29 Drug: fentaNYL (PF) 50 mcg Route: IM; Site: right gluteus; ak1 02:00 Follow up: Response: No adverse reaction; Pain is decreased ak1 Outcome: 02:00 Discharged to home ambulatory, with family. ak1 02:00 Condition: good 02:00 Discharge instructions given to patient, family, Instructed on discharge instructions, follow up and referral plans. Demonstrated understanding of instructions, follow-up care. 02:02 Discharge ordered by . pm1 02:08 Patient left the ED. ak1 Signatures: Kati Finley Amber, RN RN ak1 Johann De La Paz, LAN MANAGER LAN MANAGER pm1
--- NOTE | 2018-11-06 02:03 | EDPHYS ---
Physician Documentation [facility] Name: Casey Owens Age: 47 yrs Sex: Male : 1970 Arrival Date: 11/06/2018 Time: 00:53 Bed 7 Private MD: Jose Porter C ED Physician Fitz Marley HPI: 11/06 01:19 This 47 yrs old Male presents to ER via Ambulatory with complaints of Post pm1 Surgical Pain. 01:19 The patient presents with post surgical pain. Onset: The symptoms/episode pm1 began/occurred just prior to arrival. The symptoms do not radiate. Associated signs and symptoms: none. Pertinent negatives: nausea, vomiting, and diarrhea, dysuria, fever. The symptoms are described as sharp. Patient had hernia repair with Dr. Shannon at noon today and was discharged from the hospital at 1900. Patient went home to sleep and woke up with abdominal pain. Patient discharge home with pain medication and took it at 0050 prior to arrival. Patient was receiving morphine for pain after surgery. . Historical: - Allergies: 01:14 No Known Allergies; ak1 - Home Meds: 01:14 esomeprazole magnesium 40 mg oral cpDR 1 cap [Active]; testosterone 200MG every 9 days ak1 IM buccal [Active]; metformin 500 mg Oral Tb24 2 tabs once daily [Active]; carvedilol 3.125 mg oral tab 1 tab every 12 hours [Active]; bupropion HCl 100 mg Oral TbER 1 tab 2 times per day [Active]; Nystatin Topical [Active]; olmesartan oral 40mg oral [Active]; - PMHx: 01:14 GERD; Hypertension; Undiagnosed autoimmune disorder; low testosterone; ak1 - PSHx: 01:14 Hernia repair(October 2018); ak1 - Immunization history:: Adult Immunizations unknown. - Social history:: Smoking status: Patient uses tobacco products, smokes one pack cigarettes per day. - Ebola Screening: : No symptoms or risks identified at this time. ROS: 01:19 Constitutional: Negative for fever, chills, and weight loss, Eyes: Negative for injury, pm1 pain, redness, and discharge, ENT: Negative for injury, pain, and discharge, Neck: Negative for injury, pain, and swelling, Cardiovascular: Negative for chest pain, palpitations, and edema, Respiratory: Negative for shortness of breath, cough, wheezing, and pleuritic chest pain. 01:19 Back: Negative for injury and pain, : Negative for injury, bleeding, discharge, and swelling, MS/Extremity: Negative for injury and deformity, Skin: Negative for injury, rash, and discoloration, Neuro: Negative for headache, weakness, numbness, tingling, and seizure. 01:19 Abdomen/GI: Positive for abdominal pain, Negative for nausea, vomiting, and diarrhea, constipation. Exam: 01:19 Constitutional: This is a well developed, well nourished patient who is awake, alert, pm1 and in no acute distress. Head/Face: Normocephalic, atraumatic. Chest/axilla: Normal chest wall appearance and motion. Nontender with no deformity. No lesions are appreciated. Cardiovascular: Regular rate and rhythm with a normal S1 and S2. No gallops, murmurs, or rubs. Normal PMI, no JVD. No pulse deficits. Respiratory: Lungs have equal breath sounds bilaterally, clear to auscultation and percussion. No rales, rhonchi or wheezes noted. No increased work of breathing, no retractions or nasal flaring. Abdomen/GI: Soft, non-tender, with normal bowel sounds. No distension or tympany. No guarding or rebound. No evidence of tenderness throughout. Back: No spinal tenderness. No costovertebral tenderness. Full range of motion. 01:19 Skin: Wound recheck: Clean dressing without any blood or discharge. No surrounding redness or warmth to surgical site at umbilicus. 01:19 Neuro: Orientation: is normal, Motor: is normal, moves all fours, Gait: is steady, at a normal pace, without difficulty. Vital Signs: 01:08 BP 141 / 85; Pulse 55; Resp 16; Temp 97.7(O); Pulse Ox 99% on R/A; Weight 112.94 kg ak1 (R); Height 6 ft. 0 in. (182.88 cm) (R); Pain 9/10; 01:59 BP 128 / 86; Pulse 53; Resp 16; Temp 98; Pulse Ox 97% on R/A; Pain 4/10; ak1 01:08 Body Mass Index 33.77 (112.94 kg, 182.88 cm) ak1 MDM: 01:18 Patient medically screened. pm1 02:01 Data reviewed: vital signs. Data interpreted: Pulse oximetry: on room air is 97 %. pm1 Interpretation: normal. Counseling: I had a detailed discussion with the patient and/or guardian regarding: the historical points, exam findings, and any diagnostic results supporting the discharge/admit diagnosis, the need for outpatient follow up, to return to the emergency department if symptoms worsen or persist or if there are any questions or concerns that arise at home. Administered Medications: :29 Drug: fentaNYL (PF) 50 mcg Route: IM; Site: right gluteus; ak1 02:00 Follow up: Response: No adverse reaction; Pain is decreased ak1 Disposition: 03:33 Co-signature as Attending Physician, Fitz Marley MD. rn Disposition: 11/06/18 02:02 Discharged to Home. Impression: Other acute postprocedural pain. - Condition is Stable. - Discharge Instructions: Pain Relief Preoperatively and Postoperatively. - Medication Reconciliation Form, Thank You Letter, Antibiotic Education, Prescription Opioid Use form. - Follow up: Emergency Department; When: As needed; Reason: Worsening of condition. Follow up: Ty Shannon MD; When: 2 - 3 days; Reason: Recheck today's complaints, Continuance of care, Re-evaluation by your physician. - Problem is new. - Symptoms have improved. Signatures: Fitz Marley MD MD rn Krenek, Amber, RN RN ak1 Johann De La Paz, SE TUB WASH OPERATOR pm1 Corrections: (The following items were deleted from the chart) 02:08 02:02 11/06/2018 02:02 Discharged to Home. Impression: Other acute postprocedural pain. ak1 Condition is Stable. Forms are Medication Reconciliation Form, Thank You Letter, Antibiotic Education, Prescription Opioid Use. Follow up: Emergency Department; When: As needed; Reason: Worsening of condition. Follow up: Ty Shannon; When: 2 - 3 days; Reason: Recheck today's complaints, Continuance of care, Re-evaluation by your physician. Problem is new. Symptoms have improved. pm1
[2018-11-06 02:43] VITALS: BP 128/86; TEMP 98; O2SAT 97
== END 2018-11-06 02:08 | disposition home or self-care (01) ==
LOC: ER 00:48
DX: G89.18 Other acute postprocedural pain (principal); I10 Essential (primary) hypertension; K21.9 Gastro-esophageal reflux disease without esophagitis; F17.210 Nicotine dependence, cigarettes, uncomplicated; Z98.890 Other specified postprocedural states
CPT/HCPCS: 96372; 99283; J3010

== ENCOUNTER 2021-12-26 13:11 | Emergency (ER) | payer SELFPAY ==
--- OUTSIDE RECORDS SUMMARY | 2021-12-26 13:15 | XMS REPORT | Continuity of Care Document ---
:1970 Author Organization [facility] t Address [address] [place] [address] Care Team Providers Name Role Phone Yoni Castillo Attending Clinician Estevan Porter Admitting Clinician Unavailable Problems Condition Condition Condition Status Onset Resolution Last Treating Co mments Source Name Details Category Date Date Treatment Clinician Date Photosensi Photosens Problem Resolve 2019-05-06 Memoria tivity itivity d 23:10:32 l (finding) (finding) Herm chapis Resolved Problem 05/06/2019 [facility] Autoimmune Problem Active 2019-05-06 M emoria disease Autoimmune 23:10:32 l (disorder) disease Zuri nn (disorder) Active Problem 05/06/2019 [facility] Hypertensi Hypertens Problem Active 2019-05-06 Memoria ve vahid 23:10:32 l disorder, disorder, Herm chapis systemic systemic arterial arterial (disorder) (disorder) Active Problem 05/06/2019 [facility] Hypoglycem Hypoglyce Problem Active 2019-05-06 Memoria ia claribel 23:10:32 l (disorder) (disorder) He rmann Active Problem 05/06/2019 [facility] Migraine Migraine Problem Active 2019-05-06 Memoria (disorder) (disorder) 23:10:32 l Active [place] Problem 05/06/2019 [facility] Morbid Morbid Problem Active 2019-05-06 Bernabe matthew obesity obesity 23:10:32 l (disorder) (disorder) He rmann Active Problem 05/06/2019 [facility] Muscle Muscle Problem Active 2019-05-06 Bernabe matthew pain pain 23:10:32 l (finding) (finding) Herm chapis Active Problem 05/06/2019 [facility] Paresthesi Paresthes Problem Active 2019-05-06 Memoria a ia 23:10:32 l (finding) (finding) Herm chapis Active Problem 05/06/2019 [facility] Peripheral Periphera Problem Active 2019-05-06 Memoria nerve l nerve 23:10:32 l disease disease René (disorder) (disorder) Active Problem 05/06/2019 [facility] Photosenti Photosent Problem Active 2019-05-06 Memoria zation due ization 23:10:32 l to sun due to sun Frank n (disorder) (disorder) Active Problem 05/06/2019 [facility] Prediabete Prediabet Problem Active 2019-05-06 Memoria s es 23:10:32 l (finding) (finding) Herm chapis Active Problem 05/06/2019 [facility] Allergies, Adverse Reactions, Alerts This patient has no known allergies or adverse reactions. Social History Social Habit Start Date Stop Date Quantity Comments Source Social History 2018-09-07 2018-09-07 [facility] 21:00:37 21:00:37 Medications Ordered Filled Start Stop Current Ordering Indication Dosage Frequency Signature Comments Components Source Medication Medication Date Date Medication? Clinician (SIG) Name Name DULoxetine Yes 30 mg = 1 Me moria 30 mg oral 8-09 cap, PO, l delayed 21:30: Daily, # Frank n release 00 30 cap, 3 capsule Refill(s), Pharmacy: [facility] [place] Nystatin Yes TOP, TID, Bernabe matthew 09-07 100.000 l 20:44: Apply Bid, René 00 0 Refill(s) sildenafil Yes 20 mg, PO, M emoria 09-07 PRN, 0 l 20:44: Refill(s) Bupropion Yes 100 mg, Memor ia 09-07 PO, Daily, l 20:44: 0 René 00 Refill(s) Testosteron Yes 200 mg, Mem oria e 09-07 IM, qWeek, l 20:44: 0 [place] 00 Refill(s) Amlodipine 2019- Yes 5 mg, PO, Me moria - Daily, 0 l 20:44: Refill(s) René Hydrochloro 2018- Yes 1 tab, PO, Memoria thiazide - Daily, 0 l 12.5 MG / 20:44: Refill(s) Her rangel Losartan 00 Potassium 50 MG Oral Tablet Vital Signs Vital Name Observation Time Observation Value Comments Source Systolic (mm Hg) 2019-01-04 14:09:00 Bernabe rial [place] Diastolic (mm Hg) 2019-01-04 14:09:00 Mem orial [place] Heart Rate 2019-01-04 14:09:00 [facility] Respitory Rate 2019-01-04 14:09:00 Memori al René Height 2019-01-04 14:09:00 182.88 cm [facility] [place] Weight 2019-01-04 14:09:00 [facility] [place] BMI Calculated 2019-01-04 14:09:00 Memori al [place] Height 2018-11-19 20:26:00 180.34 cm [facility] [place] BMI Calculated 2018-11-19 20:26:00 Memori al [place] Respitory Rate 2018-11-19 20:26:00 Memori al [place] Heart Rate 2018-11-19 20:26:00 [facility] [place] Systolic (mm Hg) 2018-11-19 20:26:00 Bernabe rial [place] Diastolic (mm Hg) 2018-11-19 20:26:00 Mem orial [place] Weight 2018-11-19 20:26:00 [facility] [place] Systolic (mm Hg) 2018-10-13 20:11:00 Bernabe rial [place] Diastolic (mm Hg) 2018-10-13 20:11:00 Mem orial [place] BMI Calculated 2018-10-13 20:11:00 Memori al [place] Weight 2018-10-13 20:11:00 [facility] [place] Height 2018-10-13 20:11:00 182.88 cm [facility] Respitory Rate 2018-10-13 20:11:00 Memori al [place] Heart Rate 2018-10-13 20:11:00 [facility] Weight 2018-09-07 20:42:00 [facility] [place] Height 2018-09-07 20:42:00 182.88 cm [facility] [place] BMI Calculated 2018-09-07 20:42:00 Memori al [place] Heart Rate 2018-09-07 20:42:00 [facility] [place] Systolic (mm Hg) 2018-09-07 20:42:00 Bernabe rial [place] Diastolic (mm Hg) 2018-09-07 20:42:00 Mem orial [place] Respitory Rate 2018-09-07 20:42:00 Memori al [place] Procedures Procedure Date / Time Performed Performing [facility] [place] [facility] [place] Encounters Start End Encounter Admission Attending Care Care Encounter Source Date/Time Date/Time Type Type Clinicians Facility Department ID 2021-05-[address] [facility] Common 14:12:13 [id number] [facility] 2021-05-[address] [facility] Common 13:57:50 [id number] [facility] 2021-05-[address] [facility] Common 13:55:11 [id number] [facility] 2019-05-04 2019-05-04 Ambulatory nullFlavo MNA [id number] [facility] 21:45:00 21:45:00 Pre-Reg r Neurology 04 melchor [facility] [place] 2019-05-04 2019-05-04 Outpatient MHIE MHIE [id number] Mem[facility] 15:45:00 15:45:00 04 melchor [place] 2019-05-04 2019-05-04 Outpatient ANDREW CastilloSCHER MHMISCHER [id number] 15:45:00 15:45:00 Yoni 04 [place] 2019-01-04 2019-01-05 Outpatient nullFlavo MNA [id number] [facility] 14:00:00 04:59:59 r Neurology 03 melchor [place] 2019-01-04 2019-01-04 Outpatient ANDREW CastilloSCHER MHMISCHER [id number] 09:00:00 23:59:59 Yoni 03 [place] 2019-01-04 2019-01-04 Outpatient MHIE MHIE [id number] Memoria 09:00:00 09:00:00 03 melchor Ren[place] 2018-11-19 2018-11-20 Outpatient nullFlavo MNA [id number] [facility] 20:45:00 04:59:59 r Neurology 02 melchor [place] 2018-11-19 2018-11-19 Outpatient MAURY CastilloMISCHER MHMISCHER [id number] 15:45:00 23:59:59 Yoni 02 [place] 2018-11-19 2018-11-19 Outpatient MHIE MHIE [id number] Memoria 15:45:00 15:45:00 02 melchor [place] 2018-10-13 2018-10-14 Outpatient nullFlavo MNA [id number] [facility] 20:15:00 04:59:59 r Neurology 01 melchor Micha [place] 2018-10-13 2018-10-13 Outpatient VIPIN CastilloER MISCHER [id number] 15:15:00 23:59:59 Yoni 01 [place] 2018-10-13 2018-10-13 Outpatient MHIE MHIE [id number] Memoria 15:15:00 15:15:00 01 melchor [place] 2018-09-07 2018-09-08 Outpatient nullFlavo MNA [id number] [facility] 20:30:00 04:59:59 r Neurology 00 melchor Micha [place] 2018-09-07 2018-09-07 [id number] 15:30:00 23:59:59 Yoni 00 [place] 2018-09-07 2018-09-07 Outpatient MHIE MHIE [id number] Memoria 15:30:00 15:30:00 00 melchor [place] Results This patient has no known results.
[2021-12-26 16:48] LABS: Absolute Lymphocytes (CBC) 2.9 K/uL (0.7-4.9); Hematocrit 46.2 % (39.6-49.0); Lymphocytes % 25.2 % (15.3-44.8); MCV 88.8 fL (80-100); MPV 8.1 fL (7.6-11.3); RBC Red Blood Cell Count 5.21 M/uL (4.33-5.43)
[2021-12-26] MEDS ORDERED: HYDROMORPHONE HCL 1 MG/ML INJ ONE ×2 (17:03→17:52)
[2021-12-26] MEDS ORDERED: ONDANSETRON 4 MG/2 ML VIAL ONE (17:03)
[2021-12-26] MEDS ORDERED: NA CHLORIDE 0.9% 1,000 ML ONE (17:04)
[2021-12-26 17:05] LABS: Urine Blood Negative (Negative); Urine Glucose Negative (Negative); Urine Protein Negative (Negative); Urine Specific Gravity >=1.030 (1.005-1.030); Urine pH 5.5 (5.0-7.0)
[2021-12-26 17:12] LABS: Albumin 3.9 g/dL (3.4-5.0); Bilirubin Total 0.4 mg/dL (0.2-1.0); Potassium 4.2 mmol/L (3.5-5.1); Protein, Total 7.2 g/dL (6.4-8.2)
[2021-12-26 17:25] LABS: Urine Crystals Unidentified Few /HPF (None Seen); Urine Mucus 2+ /HPF (None Seen); Urine RBC <5 /HPF (None Seen)
--- NOTE | 2021-12-26 19:12 | RAD REPORT ---
EXAM DESCRIPTION: CTAbdomen Pelvis W Contrast - 12/26/2021 7:03 pm CLINICAL HISTORY: Abdominal pain. umbilical pain COMPARISON: Abdomen Pelvis W Contrast dated 11/04/2018; Abdomen Pelvis W Contrast dated 11/02/2015 TECHNIQUE: Biphasic CT imaging of the abdomen and pelvis was performed with 100 ml non-ionic IV cont rast. All CT scans are performed using dose optimization technique as appropriate and may include automated exposure control or mA/KV adjustment according to patient size. FINDINGS: The lung bases are clear. The liver, spleen, pancreas, adrenal glands and kidneys are within normal limits. No bowel obstruction, free air, free fluid or abscess. Moderate size fat containing umbilical hernia is seen which appears inflamed suggesting that it is incarcerated. The appendix is normal. No eviden ce of significant lymphadenopathy. No suspicious bony findings. IMPRESSION: Moderate incarcerated umbilical hernia is noted.
[2021-12-26 19:55] LABS: SARS-CoV-2 Antigen Rapid Res Negative (Negative)
--- NOTE | 2021-12-26 20:12 | EDPHYS ---
Physician Documentation [facility] Name: Casey Owens Age: 51 yrs Sex: Male : 1970 Arrival Date: 12/26/2021 Time: 13:14 Bed 13 Private MD: Jose Porter C ED Physician Manuel Hughes HPI: 12/26 16:15 This 51 yrs old Male presents to ER via Ambulatory with complaints of Hernia, Abdominal cp Pain. 16:15 The patient presents with abdominal pain in the periumbilical area. cp 16:15 Onset: The symptoms/episode began/occurred yesterday, and became worse today. The cp symptoms do not radiate. Associated signs and symptoms: Pertinent positives: nausea, Pertinent negatives: blood in stools, chest pain, constipation, fever, shortness of breath, testicular pain, vomiting. The symptoms are described as constant. Modifying factors: the symptoms are aggravated by movement. Severity of pain: in the emergency department the pain is unchanged despite home interventions. Patient reports history of umbilical hernia and that he usually can reduce hernia, but yesterday started having pain and felt hernia became larger. He was unable to reduce hernia this time and pain is worsening. Past hernia was repaired by DR Shannon 2-3 years ago. Historical: - Allergies: 13:43 No Known Allergies; tw2 - Home Meds: 13:43 carvedilol 3.125 mg Oral tab 1 tab every 12 hours [Active]; olmesartan 40 mg oral tab 1 tw2 tab once daily [Active]; - PMHx: 13:43 GERD; Hypertension; low testosterone; Undiagnosed autoimmune disorder; tw2 - PSHx: 13:43 umbilical hernia; cyst on head; tw2 - Immunization history:: Client reports having NOT received the Covid vaccine. - Social history:: Smoking status: Patient reports the use of cigarette tobacco products, smokes two packs cigarettes per day. ROS: 16:20 Constitutional: Negative for body aches, chills, fever, poor PO intake. cp 16:20 Cardiovascular: Negative for chest pain, edema, palpitations. cp 16:20 Abdomen/GI: Positive for abdominal pain, of the umbilical area, Negative for vomiting, diarrhea, constipation. Exam: 16:30 Constitutional: The patient appears in no acute distress, alert, awake, non-toxic, well cp developed, well nourished, obese, in obvious pain, uncomfortable. 16:30 Head/Face: Normocephalic, atraumatic. cp 16:30 Eyes: Periorbital structures: appear normal, Conjunctiva: normal, no exudate, no injection, Sclera: no appreciated abnormality, Lids and lashes: appear normal, bilaterally. 16:30 ENT: External ear(s): are unremarkable, Nose: is normal, Mouth: Lips: moist, Oral mucosa: pink and intact, moist, Posterior pharynx: is normal, airway is patent, no erythema, no exudate. 16:30 Chest/axilla: Inspection: normal. 16:30 Cardiovascular: Rate: normal, Rhythm: regular. 16:30 Respiratory: the patient does not display signs of respiratory distress, Respirations: normal, no use of accessory muscles, no retractions, labored breathing, is not present, Breath sounds: are clear throughout, no decreased breath sounds, no stridor, no wheezing. 16:30 Abdomen/GI: Inspection: obese Bowel sounds: active, all quadrants, Palpation: severe abdominal tenderness, in the umbilical area, rebound tenderness, is not appreciated, voluntary guarding, is elicited in the umbilical area, Hernia: noted in the umbilical area, incarceration, that is moderate, tenderness, that is severe. 16:30 Back: pain, is absent, ROM is normal. 16:30 Skin: mild erythema noted to umbilical area of abdomen. Vital Signs: 13:40 BP 111 / 73; Pulse 87; Resp 18; Temp 98.4(TE); Pulse Ox 99% on R/A; Weight 111.13 kg tw2 (R); Height 6 ft. 0 in. (182.88 cm) (R); Pain 9/10; 17:30 BP 100 / 82; Pulse 66; Resp 17; Temp 97.7; Pulse Ox 100% ; Pain 3/10; jh6 18:30 BP 100 / 71; Pulse 65; Resp 16; Pulse Ox 96% ; Pain 3/10; jh6 13:40 Body Mass Index 33.23 (111.13 kg, 182.88 cm) tw2 13:40 with any movement, just sitting here 6/10 tw2 MDM: 16:06 Patient medically screened. [facility] 19:20 Physician consultation: Ty Shannon MD was called at 19:20, was contacted at 19:20, regarding consult, patient's condition, will see patient in clinic tomorrow. 20:10 Data reviewed: vital signs, nurses notes, lab test result(s), radiologic studies, CT cp scan. 20:10 Counseling: I had a detailed discussion with the patient and/or guardian regarding: the cp historical points, exam findings, and any diagnostic results supporting the discharge/admit diagnosis, lab results, radiology results, the need for outpatient follow up, for definitive care, a general surgeon, to return to the emergency department if symptoms worsen or persist or if there are any questions or concerns that arise at home. Response to treatment: the patient's symptoms have markedly improved after treatment, and as a result, I will discharge patient. 12/26 16:11 Order name: CBC with Diff; Complete Time: 19:17 12/26 19:17 Interpretation: Normal except: WBC 11.50; EOSINOPHIL % 4.8; BASO% 1.8; EOSA 0.6. 12/26 16:11 Order name: CMP; Complete Time: 17:14 cp 12/26 17:14 Interpretation: Normal except: CL 109; GFR 79; AST 11. cp 12/26 16:11 Order name: Lipase; Complete Time: 17:14 cp 12/26 16:11 Order name: Urine Microscopic Only; Complete Time: 19:17 cp 12/26 17:05 Order name: Urine Dipstick-Ancillary; Complete Time: 17:14 EDMS 12/26 18:30 Order name: SARS RAPID ss 12/26 16:11 Order name: IV Saline Lock; Complete Time: 17:52 cp 12/26 18:09 Order name: CT Abd/Pelvis - IV Contrast Only; Complete Time: 19:17 cp 12/26 16:11 Order name: Labs collected and sent; Complete Time: 17:52 cp 12/26 16:11 Order name: Urine Dipstick-Ancillary (obtain specimen); Complete Time: 17:52 cp Administered Medications: 16:45 Drug: NS 0.9% 1000 ml Route: IV; Rate: 500 ml/hr; Site: right antecubital; jh6 20:35 Follow up: Response: No adverse reaction; IV Status: Completed infusion; IV Intake: ha1 1000ml 16:45 Drug: Zofran (Ondansetron) 4 mg Route: IVP; Site: right antecubital; jh6 20:36 Follow up: Response: No adverse reaction ha1 16:45 Drug: Dilaudid (HYDROmorphone) 1 mg Route: IVP; Site: right antecubital; jh6 20:36 Follow up: Response: No adverse reaction ha1 17:50 Drug: Dilaudid (HYDROmorphone) 0.5 mg Route: IVP; Site: right antecubital; jh6 20:36 Follow up: Response: No adverse reaction ha1 20:25 Drug: Cipro (ciprofloxacin) 500 mg Route: PO; ha1 20:35 Follow up: Response: No adverse reaction ha1 20:30 Drug: metroNIDAZOLE 500 mg Route: PO; ha1 20:35 Follow up: Response: No adverse reaction ha1 Disposition Summary: 12/26/21 20:11 Discharge Ordered Location: Home cp Problem: new cp Symptoms: have improved cp Condition: Stable cp Diagnosis - Umbilical hernia without obstruction or gangrene - fat contained incarcerated herniacp Followup: cp - With: Ty Shannon MD - When: Tomorrow - Reason: Recheck today's complaints Discharge Instructions: - Discharge Summary Sheet cp - Umbilical Hernia, Adult cp Forms: - Medication Reconciliation Form cp - Thank You Letter cp - Antibiotic Education cp - Prescription Opioid Use cp Prescriptions: - Cipro 500 mg Oral Tablet - take 1 tablet by ORAL route every 12 hours for 10 days; 20 tablet; Refills: 0, cp Product Selection Permitted - Metronidazole 500 mg Oral Tablet - take 1 tablet by ORAL route every 8 hours; 30 tablet; Refills: 0, Product cp Selection Permitted - Tylenol-Codeine #3 300 mg-30 mg Oral - take 2 tablet by ORAL route every 8-10 hours; 12 tablet; Refills: 0, Product cp Selection Permitted Signatures: Dispatcher [employer] Manuel Harkins MD MD cha Page, Corey, PA PA cp Wise, Tara, RN RN tw2 Dorothea Lemus RN RN jh6 Rima Tanner, RN RN 1
--- NOTE | 2021-12-26 20:12 | ER ---
Nurse's Notes [facility] Name: Casey Owens Age: 51 yrs Sex: Male : 1970 Arrival Date: 12/26/2021 Time: 13:14 Bed 13 Private MD: Jose Porter C Diagnosis: Umbilical hernia without obstruction or gangrene-fat contained incarcerated hernia Presentation: 12/26 13:40 Chief complaint: Patient states: i have a hernia and something felt like it popped tw2 through yesterday. today it has becoming unbearable and it a lot further out. it almost feels as bad as the surgery i had done in the same area. around my umbilical. maybe the surgery was 1 or 2 years ago. redness around umbilical area started and feels like it has fever. hot to the touch. Coronavirus screen: At this time, the client does not indicate any symptoms associated with coronavirus-19. Ebola Screen: Patient denies travel to an Ebola-affected area in the 21 days before illness onset. Initial Sepsis Screen: Does the patient meet any 2 criteria? No. Patient's initial sepsis screen is negative. Does the patient have a suspected source of infection? No. Patient's initial sepsis screen is negative. Risk Assessment: Do you want to hurt yourself or someone else? Patient reports no desire to harm self or others. Onset of symptoms was December 26, 2021. 13:40 Method Of Arrival: Ambulatory tw2 13:40 Acuity: CARYN 3 tw2 Triage Assessment: 13:44 General: Appears in no apparent distress. Behavior is calm, cooperative, appropriate tw2 for age. Pain: Complains of pain in umbilical area. Neuro: Level of Consciousness is awake, alert, obeys commands, Oriented to person, place, time, situation. GI: Patient currently denies nausea, vomiting. Derm: Skin temperature is hot around umbilical area, redness and a golf ball size protrusion noted. Historical: - Allergies: 13:43 No Known Allergies; tw2 - Home Meds: 13:43 carvedilol 3.125 mg Oral tab 1 tab every 12 hours [Active]; olmesartan 40 mg oral tab 1 tw2 tab once daily [Active]; - PMHx: 13:43 GERD; Hypertension; low testosterone; Undiagnosed autoimmune disorder; tw2 - PSHx: 13:43 umbilical hernia; cyst on head; tw2 - Immunization history:: Client reports having NOT received the Covid vaccine. - Social history:: Smoking status: Patient reports the use of cigarette tobacco products, smokes two packs cigarettes per day. Screenin:00 Abuse screen: Denies threats or abuse. Denies injuries from another. Nutritional jh6 screening: No deficits noted. Tuberculosis screening: No symptoms or risk factors identified. Fall Risk IV access (20 points). Assessment: 17:00 General: Appears uncomfortable, Behavior is calm, cooperative. Pain: Complains of pain jh6 in umbilical area Pain currently is 8 out of 10 on a pain scale. Quality of pain is described as sharp, shooting, Pain began 1 day ago. Is continuous, Alleviated by repositioning, Aggravated by exercise, increased activity. 17:00 GI: Abdomen is non-distended, Bowel sounds present X 4 quads. Abd is soft X 4 quads jh6 Abdomen is tender to palpation in umbilical area Reports lower abdominal pain. 17:00 General: pt placed in room 13 at this time./. jh6 18:30 Reassessment: Patient and/or family updated on plan of care and expected duration. Pain jh6 level reassessed. Patient is alert, oriented x 3, equal unlabored respirations, skin warm/dry/pink. Patient states feeling better. 20:30 General: Appears in no apparent distress. Behavior is calm, cooperative. Pain: ha1 Complains of pain in umbilical area. Pain: Pain currently is 3 out of 10 on a pain scale. Neuro: Level of Consciousness is awake, alert, obeys commands, Oriented to person, place, time, situation. Respiratory: Airway is patent Trachea midline Respiratory effort is even, unlabored, Respiratory pattern is regular, symmetrical. GI: Abdomen is non-distended, obese, hernia noted to the lower abdomen. Vital Signs: 13:40 BP 111 / 73; Pulse 87; Resp 18; Temp 98.4(TE); Pulse Ox 99% on R/A; Weight 111.13 kg tw2 (R); Height 6 ft. 0 in. (182.88 cm) (R); Pain 9/10; 17:30 BP 100 / 82; Pulse 66; Resp 17; Temp 97.7; Pulse Ox 100% ; Pain 3/10; jh6 18:30 BP 100 / 71; Pulse 65; Resp 16; Pulse Ox 96% ; Pain 3/10; jh6 13:40 Body Mass Index 33.23 (111.13 kg, 182.88 cm) tw2 13:40 with any movement, just sitting here 6/10 tw2 ED Course: 13:14 Patient arrived in ED. mr 13:14 Jose Porter MD is Private Physician. mr 13:42 Triage completed. tw2 13:44 Arm band placed on. tw2 15:46 Manuel Hayden PA is PHCP. cp 15:46 Manuel Hughes MD is Attending Physician. cp 16:18 Dorothea Lemus, RADHA is Primary Nurse. jh6 17:00 Placed in gown. Bed in low position. Call light in reach. Side rails up X 1. Adult w/ jh6 patient. 17:51 Assist provider with reduction of reduction of umbilical hernia. jh6 19:05 CT Abd/Pelvis - IV Contrast Only In Process Unspecified. EDMS 20:08 Ty Shannon MD is Referral Physician. cp 20:12 Attending Physician role handed off by Manuel Hughes MD cp 20:12 Fitz Marley MD is Attending Physician. cp 20:14 Manuel Hughes MD is Attending Physician. cp 20:34 IV discontinued, intact, bleeding controlled, No redness/swelling at site. Pressure ha1 dressing applied. Administered Medications: 16:45 Drug: NS 0.9% 1000 ml Route: IV; Rate: 500 ml/hr; Site: right antecubital; jh6 20:35 Follow up: Response: No adverse reaction; IV Status: Completed infusion; IV Intake: ha1 1000ml 16:45 Drug: Zofran (Ondansetron) 4 mg Route: IVP; Site: right antecubital; jh6 20:36 Follow up: Response: No adverse reaction ha1 16:45 Drug: Dilaudid (HYDROmorphone) 1 mg Route: IVP; Site: right antecubital; jh6 20:36 Follow up: Response: No adverse reaction ha1 17:50 Drug: Dilaudid (HYDROmorphone) 0.5 mg Route: IVP; Site: right antecubital; jh6 20:36 Follow up: Response: No adverse reaction ha1 20:25 Drug: Cipro (ciprofloxacin) 500 mg Route: PO; ha1 20:35 Follow up: Response: No adverse reaction ha1 20:30 Drug: metroNIDAZOLE 500 mg Route: PO; ha1 20:35 Follow up: Response: No adverse reaction ha1 Medication: 20:34 VIS not applicable for this client. ha1 Intake: 20:35 IV: 1000ml; Total: 1000ml. ha1 Outcome: 20:11 Discharge ordered by MD. cp 20:34 Discharged to home ambulatory, with family. ha1 20:34 Condition: stable 20:34 Discharge instructions given to patient, family, Instructed on discharge instructions, follow up and referral plans. medication usage, Demonstrated understanding of instructions, follow-up care, medications, Prescriptions given X 3. 20:36 Patient left the ED. ha1 Signatures: Dispatcher [employer] EDPR Kati Finley Manuel Hayden, Shahla Baldwin cp, RN RN tw2 Dorothea Lemus RN RN jh6 Rima Tanner RN RN ha1
[2021-12-26] MEDS ORDERED: metroNIDAZOLE 500 MG TABLET ONE (20:29)
[2021-12-26] MEDS ORDERED: CIPROFLOXACIN HCL 500 MG TAB ONE (20:30)
[2021-12-28 04:24] VITALS: BP 100/71; O2SAT 96
[2021-12-28 04:58] VITALS: TEMP 97.7
== END 2021-12-26 20:36 | disposition home or self-care (01) ==
LOC: ER 13:11
DX: K42.9 Umbilical hernia without obstruction or gangrene (principal); Z20.822 Contact with and (suspected) exposure to COVID-19; F17.210 Nicotine dependence, cigarettes, uncomplicated
CPT/HCPCS: 36415; 74177; 80053; 81003; 81015; 83690; 85025; 87811; 96361; 96374; 96375; 99284; J1170; J2405; J7030; Q9967

== ENCOUNTER 2021-12-27 12:59 | Inpatient (IN) | payer SELFPAY ==
--- OUTSIDE RECORDS SUMMARY | 2021-12-27 13:02 | XMS REPORT | Continuity of Care Document ---
:1970 Author Organization [facility] t Address [address] [place] [address] Care Team Providers Name Role Phone Yoni Castillo Attending Clinician Estevan Porter Admitting Clinician Unavailable Problems Condition Condition Condition Status Onset Resolution Last Treating Co mments Source Name Details Category Date Date Treatment Clinician Date Hypoglycem Hypoglyce Problem Active 2019-05-06 Memoria ia claribel 23:10:32 l (disorder) (disorder) He [place] Active Problem 05/06/2019 [facility] Migraine Migraine Problem Active 2019-05-06 Memoria (disorder) (disorder) 23:10:32 l Active [place] Problem 05/06/2019 [facility] Morbid Morbid Problem [...] (disorder) Active Problem 05/06/2019 [facility] Prediabete Problem Active 2019-05-06 M emoria s Prediabete 23:10:32 l (finding) s [place] (finding) Active Problem 05/06/2019 [facility] Photosensi Photosens Problem Resolve 2019-05-06 Memoria tivity itivity d 23:10:32 l (finding) (finding) Herm chapis Resolved Problem 05/06/2019 [facility] 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 Social History Social Habit Start Date Stop Date Quantity Comments Source Social History 2018-09-07 2018-09-07 [facility] 21:00:37 21:00:37 Medications Ordered Filled Start Stop Current Ordering Indication Dosage Frequency Signature Comments Components Source Medication Medication Date Date Medication? Clinician (SIG) Name Name DULoxetine Yes 30 mg = 1 Me moria 30 mg oral 8-09 cap, PO, l delayed 21:30: Daily, # Frank n release 00 30 cap, 3 capsule Refill(s), Pharmacy: [facility] [place] DULoxetine Yes 30 mg = 1 Me moria 30 mg oral 8-09 cap, PO, l delayed 21:30: Daily, # Frank n release 00 30 cap, 3 capsule Refill(s), Pharmacy: [facility] [place] Nystatin Yes TOP, TID, Bernabe matthew 09-07 100.000 l 20:44: Apply Bid, 0 Refill(s) sildenafil Yes 20 mg, PO, M emoria 09-07 PRN, 0 l 20:44: Refill(s) René 00 Bupropion 2018-0 Yes 100 mg, Memor ia - PO, Daily, l 20:44: 0 [place] 00 Refill(s) Testosteron 0 Yes 200 mg, Mem oria e - IM, qWeek, l 20:44: 0 [place] 00 Refill(s) Amlodipine 2018-0 Yes 5 mg, PO, Me moria - Daily, 0 l 20:44: Refill(s) René 00 Hydrochloro Yes 1 tab, PO, Memoria thiazide 5-28 Daily, 0 l 12.5 MG / 20:44: Refill(s) Her rangel Losartan 00 Potassium 50 MG Oral Tablet Nystatin Yes TOP, TID, Bernabe matthwe - 100.000 l 20:44: Apply Bid, René 00 0 Refill(s) sildenafil 2018- Yes 20 mg, PO, M emoria 5- PRN, 0 l 20:44: Refill(s) Bupropion Yes 100 mg, Memor ia 5-28 PO, Daily, l 20:44: 0 René 00 Refill(s) Testosteron Yes 200 mg, Mem oria e 5- IM, qWeek, l 20:44: 0 Refill(s) Amlodipine Yes 5 mg, PO, Me moria 5- Daily, 0 l 20:44: Refill(s) Hydrochloro Yes 1 tab, PO, Memoria thiazide 5-28 Daily, 0 l 12.5 MG / 20:44: Refill(s) Her rangel Losartan 00 Potassium 50 MG Oral Tablet Vital Signs Vital Name Observation Time Observation Value Comments Source Systolic (mm Hg) 2019-01-04 14:09:00 Bernabe Merritt Diastolic (mm Hg) 2019-01-04 14:09:00 [facility] Heart Rate 2019-01-04 14:09:00 [facility] Respitory Rate 2019-01-04 14:09:00 [facility] Height 2019-01-04 14:09:00 182.88 cm [facility] Weight 2019-01-04 14:09:00 [facility] BMI Calculated 2019-01-04 14:09:00 [facility] Height 2018-11-19 20:26:00 180.34 cm [facility] BMI Calculated 2018-11-19 20:26:00 [facility] Respitory Rate 2018-11-19 20:26:00 [facility] Heart Rate 2018-11-19 20:26:00 [facility] Systolic (mm Hg) 2018-11-19 20:26:00 Bernabe rial [place] Diastolic (mm Hg) 2018-11-19 20:26:00 Mem orial René Weight 2018-11-19 20:26:00 [facility] Systolic (mm Hg) 2018-10-13 20:11:00 Bernabe rial [place] Diastolic (mm Hg) 2018-10-13 20:11:00 Mem orial René BMI Calculated 2018-10-13 20:11:00 Memori al René Weight 2018-10-13 20:11:00 [facility] Height 2018-10-13 20:11:00 182.88 cm [facility] [place] Respitory Rate 2018-10-13 20:11:00 Mem[facility] al René Heart Rate 2018-10-13 20:11:00 [facility] Weight 2018-09-07 20:42:00 [facility] Height 2018-09-07 20:42:00 182.88 cm [facility] [place] BMI Calculated 2018-09-07 20:42:00 Memori al René Heart Rate 2018-09-07 20:42:00 [facility] Systolic (mm Hg) 2018-09-07 20:42:00 Benrabe rial [place] Diastolic (mm Hg) 2018-09-07 20:42:00 Mem orial René Respitory Rate 2018-09-07 20:42:00 Memori al René Procedures Procedure Date / Time Performed Performing Clinician [facility] Cystectomy [facility] [place] [facility]asectomy [facility] [place] Encounters Start End Encounter Admission Attending Care Care Encounter Source Date/Time Date/Time Type Type Clinicians Facility Department ID 2021-05-08 [facility] [id number] Common 14:12:13 [id number] [facility] 2021-05-08 [facility] [id number] Common 13:57:50 [id number] [facility] 2021-05-08 [facility] [id number] Common 13:55:11 [id number] [facility] 2019-05-04 2019-05-04 Ambulatory nullFlavo MNA [id number] Memoria 21:45:00 21:45:00 Pre-Reg r Neurology 04 l Wilcox [place] 2019-05-04 2019-05-04 Ambulatory nullFlavo MNA [id number] Memoria 21:45:00 21:45:00 Pre-Reg r Neurology 04 l Wilcox [place] 2019-05-04 2019-05-04 Outpatient MHIE MHIE [id number] Memoria 15:45:00 15:45:00 04 melchor [place] 2019-05-04 2019-05-04 [id number] 15:45:00 15:45:00 Yoni Sebastián [place] 2019-01-04 2019-01-05 Outpatient nullFlavo MNA [id number] Memoria 14:00:00 04:59:59 r Neurology 03 melchor Muse René 2019-01-04 2019-01-05 Outpatient nullFlavo MNA [id number] Memoria 14:00:00 04:59:59 r Neurology 03 melchor Muse [place] 2019-01-04 2019-01-04 Outpatient TRAY Castillo [facility] [id number] 09:00:00 23:59:59 Yoni Kendal [place] 2019-01-04 2019-01-04 Outpatient MHIE MHIE [id number] Memoria 09:00:00 09:00:00 03 melchor [place] 2018-11-19 2018-11-20 Outpatient nullFlavo MNA [id number] Memoria 20:45:00 04:59:59 r Neurology 02 melchor Muse René 2018-11-19 2018-11-20 Outpatient nullFlavo MNA [id number] Memoria 20:45:00 04:59:59 r Neurology 02 melchor Muse René 2018-11-19 2018-11-19 [facility] [id number] 15:45:00 23:59:59 Yoni Umm [place] 2018-11-19 2018-11-19 Outpatient MHIE MHIE [id number] Memoria 15:45:00 15:45:00 02 melchor René 2018-10-13 2018-10-14 Outpatient nullFlavo MNA [id number] Memoria 20:15:00 04:59:59 r Neurology 01 melchor Wilcox [place] 2018-10-13 2018-10-14 Outpatient nullFlavo MNA [id number] Memoria 20:15:00 04:59:59 r Neurology 01 melchor Wilcox René 2018-10-13 2018-10-13 [facility] [id number] 15:15:00 23:59:59 Yoni 01 [place] 2018-10-13 2018-10-13 Outpatient MHIE MHIE [id number] Memoria 15:15:00 15:15:00 01 melchor Merritt 2018-09-07 2018-09-08 Outpatient nullFlavo MNA [id number] Memoria 20:30:00 04:59:59 r Neurology 00 l Micha Merritt 2018-09-07 2018-09-08 Outpatient nullFlavo MNA [id number] Memoria 20:30:00 04:59:59 r Neurology 00 l Micha Merritt 2018-09-07 2018-09-07 [facility] [id number] 15:30:00 23:59:59 Yoni 00 [place] 2018-09-07 2018-09-07 Outpatient MHIE IE [id number] Memoria 15:30:00 15:30:00 00 melchor Merritt Results This patient has no known results.
[2021-12-27 14:02] LABS: Absolute Lymphocytes (CBC) 2.1 K/uL (0.7-4.9); Hematocrit 43.9 % (39.6-49.0); Lymphocytes % 23.4 % (15.3-44.8); MCV 88.7 fL (80-100); MPV 8.4 fL (7.6-11.3); RBC Red Blood Cell Count 4.95 M/uL (4.33-5.43)
[2021-12-27 14:09] LABS: Albumin 3.6 g/dL (3.4-5.0); Bilirubin Total 0.4 mg/dL (0.2-1.0); Potassium 3.9 mmol/L (3.5-5.1); Protein, Total 6.8 g/dL (6.4-8.2)
[2021-12-27] MEDS ORDERED: MORPHINE 2 MG/ML SYR ONE (14:49)
[2021-12-27] MEDS ORDERED: ONDANSETRON 4 MG/2 ML VIAL ONE (14:52)
--- NOTE | 2021-12-27 15:01 | EDPHYS ---
Physician Documentation [facility] Name: Casey Owens Age: 51 yrs Sex: Male : 1970 Arrival Date: 12/27/2021 Time: 13:01 Bed 20 Private MD: ED Physician Meliton Zarco HPI: 12/27 13:26 This 51 yrs old Male presents to ER via Ambulatory with complaints of Abdominal Pain, jmm Hernia. 13:26 The patient presents with abdominal pain. Onset: The symptoms/episode began/occurred jmm gradually. The symptoms do not radiate. Associated signs and symptoms: Pertinent positives: nausea. The patient has experienced a previous episode, yesterday. The patient has been recently seen by a physician: The patient has been recently seen at the [facility], yesterday, for similar complaints labs were performed, CT scan was performed. Historical: - Allergies: 13:18 No Known Allergies; kr3 - PMHx: 13:18 GERD; Hypertension; low testosterone; Undiagnosed autoimmune disorder; kr3 - PSHx: 13:18 Umbilical hernia; cyst on head; kr3 - Immunization history:: Adult Immunizations not up to date. - Social history:: Smoking status: Patient reports the use of cigarette tobacco products, smokes two packs cigarettes per day. ROS: 13:26 Constitutional: Negative for fever, chills, and weight loss, Cardiovascular: Negative jmm for chest pain, palpitations, and edema, Respiratory: Negative for shortness of breath, cough, wheezing, and pleuritic chest pain. 13:26 Abdomen/GI: Positive for abdominal pain. 13:26 All other systems are negative. Exam: 13:26 Constitutional: This is a well developed, well nourished patient who is awake, alert, jmm and in no acute distress. Head/Face: atraumatic. Eyes: EOMI, no conjunctival erythema appreciated ENT: Moist Mucus Membranes Neck: Trachea midline, Supple Chest/axilla: Normal chest wall appearance and motion. Cardiovascular: Regular rate and rhythm. No edema appreciated Respiratory: Normal respirations, no respiratory distress appreciated 13:26 Back: Normal ROM Skin: General appearance color normal MS/ Extremity: Moves all extremities, no obvious deformities appreciated, no edema noted to the lower extremities Neuro: Awake and alert Psych: Behavior is normal, Mood is normal, Patient is cooperative and pleasant 13:26 Abdomen/GI: Inspection: Palpation: mass, that is tender, of the umbilical area. Vital Signs: 13:14 BP 111 / 72; Pulse 78; Resp 18; Temp 98.9; Pulse Ox 97% on R/A; Weight 111.13 kg; kr3 Height 6 ft. 0 in. (182.88 cm); Pain 9/10; 16:02 BP 126 / 74; Pulse 66; Resp 16; Pulse Ox 100% on R/A; bm7 20:33 BP 134 / 70; Pulse 71; Resp 16; Pulse Ox 100% on R/A; bm7 21:03 BP 115 / 59; Pulse 78; Resp 18; Temp 99.0(TE); Pulse Ox 95% on R/A; oe 13:14 Body Mass Index 33.23 (111.13 kg, 182.88 cm) kr3 MDM: 13:26 Patient medically screened. [facility] 14:57 Data reviewed: vital signs, nurses notes. Counseling: I had a detailed discussion with royer the patient and/or guardian regarding: the historical points, exam findings, and any diagnostic results supporting the discharge/admit diagnosis, lab results, radiology results, the need for further work-up and treatment in the hospital. ED course: I discussed the patient with Dr. Shannon whom will consult on admission. . 12/27 13:27 Order name: CBC with Diff; Complete Time: 14:26 [facility] 12/27 13:27 Order name: CMP; Complete Time: 14:14 [facility] 12/27 13:27 Order name: Lipase; Complete Time: 14:14 [facility] 12/27 13:41 Order name: Lactate; Complete Time: 19:04 [facility] 12/27 15:17 Order name: CBC with Automated Diff [facility] 12/27 15:17 Order name: CBC with Automated Diff [facility] 12/27 15:17 Order name: Comprehensive Metabolic Panel [facility] 12/27 15:17 Order name: Comprehensive Metabolic Panel [facility] 12/27 15:21 Order name: SARS RAPID em1 12/27 18:53 Order name: SARS-COV-2 Antigen Rapid; Complete Time: 19:04 [facility] 12/27 21:54 Order name: Protime (+INR) [facility] 12/27 13:27 Order name: IV Saline Lock; Complete Time: 13:41 [facility] 12/27 13:27 Order name: Labs collected and sent; Complete Time: 13:41 [facility] 12/27 15:17 Order name: CONS Physician Consult [facility] 12/27 15:17 Order name: NPO [facility] 12/27 16:45 Order name: Diet Regular; Complete Time: 16:45 bm7 Administered Medications: 14:45 Drug: morphine 2 mg Route: IVP; Infused Over: 4 mins; Site: right antecubital; bm7 16:34 Follow up: Response: Pain is decreased 7 14:45 Drug: Zofran (Ondansetron) 4 mg Route: IVP; Site: right antecubital; bm7 16:34 Follow up: Response: Nausea is decreased 7 16:02 Drug: Flagyl (metroNIDAZOLE) 500 mg Volume: 100 ml; Route: IVPB; Rate: 200 ml/hr; bm7 Infused Over: 30 mins; Site: right antecubital; 17:11 Follow up: Response: No adverse reaction; IV Status: Completed infusion bm7 17:12 Drug: Cipro (ciprofloxacin) 400 mg Volume: 200 ml; Route: IVPB; Infused Over: 60 mins; bm7 Site: right antecubital; 18:23 Follow up: IV Status: Completed infusion; IV Intake: 200ml jg9 Disposition Summary: 12/27/21 15:00 Hospitalization Ordered Hospitalization Status: Observation [facility] Provider: Ricardo Fraser Location: Telemetry/MedSurg (observation) [facility] Condition: Stable [facility] Problem: new [facility] Symptoms: are unchanged [facility] Bed/Room Type: Standard [facility] Room Assignment: 430(12/27/21 20:53) cg Diagnosis - Incarcerated hernia [facility] Forms: - Medication Reconciliation Form m - SBAR form [facility] Signatures: Dispatcher [employer] EDMS Van Gonzalez PA PA jmm Garcia, Cindy RN RN cg Ivon Bustos RN RN Elvia Salinas RN RN [email or web address] Dorothea Ham RN jg9 Corrections: (The following items were deleted from the chart) 20:53 15:00 [facility] cg
--- NOTE | 2021-12-27 15:01 | ER ---
Nurse's Notes [facility] Name: Casey Owens Age: 51 yrs Sex: Male : 1970 Arrival Date: 12/27/2021 Time: 13:01 Bed 20 Private MD: Diagnosis: Incarcerated hernia Presentation: 12/27 13:14 Chief complaint: Patient states: umbilical hernia that is painful, went to see dr lance guerrero he was referred to by us and was sent back to ER due to not having insurance. Coronavirus screen: Vaccine status: Patient reports being unvaccinated. Client denies travel out of the [place] in the last 14 days. Ebola Screen: Patient denies travel to an Ebola-affected area in the 21 days before illness onset. Initial Sepsis Screen: Does the patient meet any 2 criteria? No. Patient's initial sepsis screen is negative. Does the patient have a suspected source of infection? Yes: Acute abdominal pain. Risk Assessment: Do you want to hurt yourself or someone else? Patient reports no desire to harm self or others. Onset of symptoms was December 24, 2021. 13:14 Method Of Arrival: Ambulatory kr3 13:14 Acuity: CARYN 3 kr3 Triage Assessment: 13:20 General: Appears in no apparent distress. uncomfortable, Behavior is calm, cooperative, kr3 appropriate for age. Pain: Complains of pain in umbilical area. Historical: - Allergies: 13:18 No Known Allergies; kr3 - PMHx: 13:18 GERD; Hypertension; low testosterone; Undiagnosed autoimmune disorder; kr3 - PSHx: 13:18 Umbilical hernia; cyst on head; kr3 - Immunization history:: Adult Immunizations not up to date. - Social history:: Smoking status: Patient reports the use of cigarette tobacco products, smokes two packs cigarettes per day. Screenin:46 Abuse screen: Denies threats or abuse. Nutritional screening: No deficits noted. bm7 Tuberculosis screening: No symptoms or risk factors identified. Fall Risk None identified. Assessment: 14:46 Reassessment: No changes from previously documented assessment. bm7 16:17 General: Appears in no apparent distress. uncomfortable, Behavior is calm, cooperative. bm7 Pain: Complains of pain in umbilical area. Neuro: No deficits noted. Cardiovascular: No deficits noted. Respiratory: No deficits noted. GI: Bowel sounds present X 4 quads. Abd is soft X 4 quads Abdomen is tender to palpation in umbilical area Patient currently denies nausea, vomiting. : No deficits noted. No signs and/or symptoms were reported regarding the genitourinary system. EENT: No deficits noted. No signs and/or symptoms were reported regarding the EENT system. Derm: No deficits noted. No signs and/or symptoms reported regarding the dermatologic system. Musculoskeletal: No deficits noted. No signs and/or symptoms reported regarding the musculoskeletal system. 20:11 Reassessment: Patient appears in no apparent distress at this time. Patient and/or bm7 family updated on plan of care and expected duration. Pain level reassessed. Patient is alert, oriented x 3, equal unlabored respirations, skin warm/dry/pink. 20:33 Reassessment: Patient and/or family updated on plan of care and expected duration. Pain bm7 level reassessed. Patient is alert, oriented x 3, equal unlabored respirations, skin warm/dry/pink. Patient states feeling better. Patient states symptoms have improved. Vital Signs: 13:14 BP 111 / 72; Pulse 78; Resp 18; Temp 98.9; Pulse Ox 97% on R/A; Weight 111.13 kg; kr3 Height 6 ft. 0 in. (182.88 cm); Pain 9/10; 16:02 BP 126 / 74; Pulse 66; Resp 16; Pulse Ox 100% on R/A; bm7 20:33 BP 134 / 70; Pulse 71; Resp 16; Pulse Ox 100% on R/A; bm7 21:03 BP 115 / 59; Pulse 78; Resp 18; Temp 99.0(TE); Pulse Ox 95% on R/A; oe 13:14 Body Mass Index 33.23 (111.13 kg, 182.88 cm) kr3 ED Course: 13:01 Patient arrived in ED. mr 13:18 Triage completed. kr3 13:20 Arm band placed on right wrist. kr3 13:22 Van Gonzalez PA is PHCP. [facility] 13:22 Meliton Zarco MD is Attending Physician. jmm 13:40 Inserted saline lock: 20 gauge in right antecubital area, using aseptic technique. zm Blood collected. 13:41 CBC with Diff Sent. zm 13:41 CMP Sent. zm 13:41 Lipase Sent. zm 14:28 Ivon Bustos, RN is Primary Nurse. bm7 14:45 hernia reduction. bm7 14:46 No apparent distress. Awaiting bed assignment. bm7 14:46 Patient has correct armband on for positive identification. Placed in gown. Bed in low bm7 position. Call light in reach. Side rails up X2. Adult w/ patient. Client placed on continuous cardiac and pulse oximetry monitoring. NIBP monitoring applied. Warm blanket given. 14:46 Patient maintains SpO2 saturation greater than 95% on room air. bm7 14:59 Ricardo Fraser MD is Hospitalizing Provider. royer 16:17 Assisted with urinal. bm7 21:45 Patient admitted, IV remains in place. bm7 Administered Medications: 14:45 Drug: morphine 2 mg Route: IVP; Infused Over: 4 mins; Site: right antecubital; bm7 16:34 Follow up: Response: Pain is decreased bm7 14:45 Drug: Zofran (Ondansetron) 4 mg Route: IVP; Site: right antecubital; bm7 16:34 Follow up: Response: Nausea is decreased bm7 16:02 Drug: Flagyl (metroNIDAZOLE) 500 mg Volume: 100 ml; Route: IVPB; Rate: 200 ml/hr; bm7 Infused Over: 30 mins; Site: right antecubital; 17:11 Follow up: Response: No adverse reaction; IV Status: Completed infusion bm7 17:12 Drug: Cipro (ciprofloxacin) 400 mg Volume: 200 ml; Route: IVPB; Infused Over: 60 mins; bm7 Site: right antecubital; 18:23 Follow up: IV Status: Completed infusion; IV Intake: 200ml jg9 Medication: 14:46 VIS not applicable for this client. bm7 Intake: 18:23 IV: 200ml; Total: 200ml. jg9 Outcome: 15:00 Decision to Hospitalize by Provider. royer 21:45 Admitted to Tele accompanied by tech, family with patient, room 430, with chart, Report bm7 called to RADHA Marin 21:45 Condition: improved 21:45 Discharge instructions given to patient, family, Instructed on the need for admit, Demonstrated understanding of 22:06 Patient left the ED. zm Signatures: MicVan fuentes PA PA jmm Rivera, Kati mr Vasquez, Ivon Frederick, RN RN bm7 Dorothea Ham RN RN jg9 Jelly Shannon Kelley, RN RN kr3
[2021-12-27] MEDS ORDERED: ONDANSETRON 4 MG/2 ML VIAL IV PRN (15:10)
[2021-12-27] MEDS ORDERED: MORPHINE 2 MG/ML SYR IV PRN (15:10)
[2021-12-27] MEDS ORDERED: CIPROFLOXACIN 400mg IV 400 MG/200 ML BAG IV ONE (15:36)
[2021-12-27] MEDS ORDERED: METRONIDAZOLE 500mg IVPB 500 MG/100 ML BAG IV ONE (15:36)
--- NOTE | 2021-12-27 16:50 | P.HP ---
Certification for Inpatient Patient admitted to: Inpatient With expected LOS: >2 Midnights Practitioner: I am a practitioner with admitting privileges, knowledge of patient current condition, hospital course, and medical plan of care. Services: Services provided to patient in accordance with Admission requirements found in Title 42 Section 412.3 of the Code of Federal Regulations Patient History Date of Service: 12/28/21 Reason for admission: Ulcerated umbilical hernia History of Present Illness: Patient is 51 years of age has been having problems with the umbilical hernia for quite some time became worse today he had obvious hernia that has gotten worse associated with severe pain. From the emergency room the hernia was reduced he still has significant amount of pain tickly on coughing and some redness in the area seen by Dr. Shannon Allergies No Known Allergies Allergy (Verified 12/27/21 23:25) Home Medications: Olmesartan Medoxomil 40 mg PO DAILY 11/04/18 carvediloL [Coreg] 3.125 mg PO BID 11/04/18 - Past Medical/Surgical History Diabetic: No -: borderline Diabetic -: HTN -: sleep apnea -: Autoimmune disorder -: Vasectomy -: cyst removal from scalp -: skin graft to right pinky. - Family History Father -: Heart disease - Social History Smoking Status: Current every day smoker Alcohol use: Yes CD- Drugs: No Caffeine use: Yes Review of Systems 10-point ROS is otherwise unremarkable Gastrointestinal: As per HPI Physical Examination - Vital Signs Temperature: 98.9 F Blood Pressure: 111/72 Pulse: 78 Respirations: 18 Pulse Ox (%): 97 - Physical Exam General: Alert, In no apparent distress, Oriented x3 HEENT: Atraumatic Neck: Supple Respiratory: Clear to auscultation bilaterally Cardiovascular: No edema, Normal S1 S2 Gastrointestinal: Tenderness (Patient has periumbilical tenderness with some erythema) Musculoskeletal: No clubbing Integumentary: No rashes, No breakdown - Studies Laboratory Data (last 24 hrs) 12/27/21 13:37: Sodium 140, Potassium 3.9, BUN 15, Creatinine 0.98, Glucose 165 H, Total Bilirubin 0.4, AST 10 L, ALT 24, Alkaline Phosphatase 93, Lipase 69 L 12/27/21 13:37: WBC 9.10, Hgb 15.0, Hct 43.9, Plt Count 250 Assessment and Plan - Problems (Diagnosis) (1) Incarcerated umbilical hernia Current Visit: Yes Status: Acute - Plan Patient is 51 years of age admitted with incarcerated umbilical hernia that has been partially reduced he still has significant amount of pain and discomfort got worse over the past year the hernia has been reduced by Dr. Shannon scheduled for surgery tomorrow labs unremarkable Discharge Plan: Home Plan to discharge in: 48 Hours - Advance Directives Does patient have a Living Will: No Does patient have a Durable POA for Healthcare: No
[2021-12-27 18:53] LABS: SARS-CoV-2 Antigen Rapid Res Negative (Negative)
[2021-12-27 21:53] LABS: Protime INR 1.04
[2021-12-27 23:42] VITALS: BMI 32.6
[2021-12-27] MEDS: NA CHLORIDE 0.9% 1,000 ML IV SCH (23:59)
[2021-12-28] MEDS: NA CHLORIDE 0.9% 1,000 ML IV SCH ×2 (02:00→10:19)
[2021-12-28 02:54] LABS: Absolute Lymphocytes (CBC) 2.9 K/uL (0.7-4.9); Hematocrit 43.9 % (39.6-49.0); Lymphocytes % 32.5 % (15.3-44.8); MCV 89.5 fL (80-100); MPV 8.5 fL (7.6-11.3); RBC Red Blood Cell Count 4.91 M/uL (4.33-5.43)
[2021-12-28 03:15] LABS: Albumin 3.3 g/dL (3.4-5.0); Bilirubin Total 0.2 mg/dL (0.2-1.0); Potassium 4.4 mmol/L (3.5-5.1); Protein, Total 6.3 g/dL (6.4-8.2)
--- NOTE | 2021-12-28 08:38 | P.PN ---
Subjective Date of Service: 12/28/21 Chief Complaint: Ulcerated umbilical hernia No change in patient's condition is still has some discomfort in the periumbilical area scheduled to have an operation today Review of Systems Unremarkable Physical Examination - Vital Signs Temperature: 98.2 F Blood Pressure: 114/59 Pulse: 57 Respirations: 16 Pulse Ox (%): 98 - Physical Exam General: Alert, In no apparent distress, Oriented x3 Cardiovascular: No edema Gastrointestinal: Other (Periumbilical erythema with discomfort) - Studies Laboratory Data (last 24 hrs) 12/27/21 13:37: Sodium 140, Potassium 3.9, BUN 15, Creatinine 0.98, Glucose 165 H, Total Bilirubin 0.4, AST 10 L, ALT 24, Alkaline Phosphatase 93, Lipase 69 L 12/27/21 13:37: WBC 9.10, Hgb 15.0, Hct 43.9, Plt Count 250 Assessment And Plan - Current Problems (Diagnosis) (1) Incarcerated umbilical hernia Current Visit: Yes Status: Acute Plan: Patient is scheduled to have surgery today otherwise stable vital signs Labs reviewed no change in meds
--- NOTE | 2021-12-28 11:12 | P.BOP ---
Preoperative diagnosis: incarcerated recurrent umbilical hernia Postoperative diagnosis: same Primary procedure: Open repair of incarcerated umbilical hernia Estimated blood loss: <10cc Specimen: hernia sac Findings: hernia sac with incarcerated tissue Anesthesia: General Complications: None Transferred to: Recovery Room Condition: Good
[2021-12-28] MEDS ORDERED: CEFAZOLIN SODIUM 1 GM/VIAL ONE (11:15)
[2021-12-28] MEDS ORDERED: BUPIVACAINE 0.5% PF 10 ML VIAL ONE (11:19)
[2021-12-28] MEDS ORDERED: SUCCINYLCHOLINE 20 MG/ML (10 ML) IV ONE (11:26)
[2021-12-28] MEDS ORDERED: ROCURONIUM 50 MG/5 ML VIAL IV ONE (11:28)
[2021-12-28] MEDS ORDERED: MIDAZOLAM HCL 2 MG/2 ML INJ ONE (11:28)
[2021-12-28] MEDS ORDERED: FENTANYL CITR 100 MCG/2 ML ONE (11:28)
[2021-12-28] MEDS ORDERED: propofoL 200 MG/20 ML VIAL IV ONE (11:28)
[2021-12-28] MEDS ORDERED: HYDROCODONE/APAP 5/325 MG TAB PO PRN (12:06)
[2021-12-28] MEDS ORDERED: GLYCOPYRROLATE 0.2 MG/ML SYR ONE ×2 (12:08)
--- NOTE | 2021-12-28 12:10 | CON ---
Date of Consultation: 12/27/2021 Reason For Service: Incarcerated umbilical hernia. History Of Present Illness: This is the case of a male, who comes to us with a periumbilical pain an d bulging. He came yesterday to the ER, received reduction of the hernia, and sent to go electively to my office, but today shows in the ER again since the hernia came back and it is now red. He says he was doing some heavy lifting at work and noticed this. The patient has this hernia repair in the past several years ago. Since, he has been gaining some weight and doing some heavy lifting. He als o has every now and then some coughing that once again makes the hernia hurt. Past Medical History: Includes diabetic, hypertension, sleep apnea. Past Surgical History: Includes umbilical hernia repair, skin graft to right finger, vasectomy, and a cyst removed from the scalp. Family History: Includes heart disease. Social History: He smokes every day. He was counseled about smoking cessation. He does not drink a lcohol. Allergies: NONE. Review of Systems: Periumbilical tenderness. No fever. No shortness of breath. No chest pain. Physical Examination: General: The patient is awake, alert. HEENT: Pupils are equal and reactive. Anicteric. Neck: Supple. Chest: Clear. Heart: S1, S2. Abdomen: Soft, nondistended. There is an incarcerated umbilical hernia that cannot be reduced at th is moment. There is skin erythema present around the area and some tenderness and intractable pain. Extremities: Good capillary refill. Neuro: Cranial nerves 2 through 12 grossly within normal limits. Laboratory Data: Blood work shows WBC count of 9 with hemoglobin of 15, platelets of 228. INR 1.04, potassium is 4.4, creatinine is 0.89. CAT scan of the abdomen and pelvis shows incarcerated umbilic al hernia with fat stranding. Assessment: This is a 51-year-old patient with multiple medical problems, at the same time comes to us with incarcerated umbilical hernia, probably strangulated fat. The patient comes with morbid obes ity. He was advised the importance of losing weight, also counseled about smoking cessation. He was also advised against the heavy lifting. The benefits, alternatives, and risks of open repair of an incarcerated umbilical hernia with recurrent umbilical hernia with possible mesh fully explained, whi ch include, but not limited to infection, bleeding, damage to adjacent structures, anesthesia complic ation, recurrence, HI, and even . He also understands this may not relieve any symptoms. He mi ght need more than one surgical intervention. He understood, signed a consent. Before that, we expl ained to the patient also pros and cons of mesh placement. All the questions were answered to his sa tisfaction. He did agree with the mesh use if needed. ANDRIY/ELHAM Voice ID: [id number] Report ID: [id number]
[2021-12-28] MEDS ORDERED: NEOSTIGMINE 1 MG/ML -10 ML VIAL ONE (12:12)
[2021-12-28] MEDS: HYDROMORPHONE HCL 1 MG/ML INJ ONE ×2 (12:15→12:20)
[2021-12-28] MEDS: FENTANYL CITR 100 MCG/2 ML ONE ×4 (12:24→12:40)
[2021-12-28] MEDS ORDERED: KETOROLAC 30 MG/ML INJ ONE (12:25)
[2021-12-28 12:34] VITALS: O2SAT 98
--- NOTE | 2021-12-28 12:58 | OP ---
Date of Procedure: 12/28/2021 Surgeon: Ty Shannon MD Preoperative Diagnosis: Incarcerated tender recurrent umbilical hernia. Postoperative Diagnosis: Incarcerated tender recurrent umbilical hernia. Procedure: Open repair of incarcerated tender umbilical hernia. Estimated Blood Loss: Less than 10 mL. Specimen: Hernia sac. Findings: Hernia sac with incarcerated tissue. Anesthesia: General plus local. Complications: None. Indication: This is the case of a 51-year-old patient, who comes to us with recurrent incarcerated u mbilical hernia, very tender. He came to the ER, sent home for elective repair, came to the ER again within hours with tenderness of the periumbilical region. I was called for consultation and surgica l repair. The benefits, alternatives, and risks of repair of recurrent umbilical hernia fully explai moraima, which include, but not limited to infection, bleeding, damage to adjacent structures, anesthesia complication, recurrence, RI, and even . He also understands this may not relieve any symptoms . He might need more than one surgical intervention. He signed a consent. He was counseled the imp ortance of losing weight and no heavy lifting. Procedure In Detail: The patient was brought to the operating room emergently. The patient placed i n supine position. Anesthesia was done without complication. Abdomen was prepped and draped in the usual sterile fashion. A time-out was called. An incision was made in the ventral region in the sup raumbilical area. The incision was carried down to fascia from the hernia sac opened the hernia sac, noticed incarcerated omentum. Since the viability is question of that fatty tissue, we preferred ju st to ligate between Johanna clamps and 0 chromic for ties. Specimen and hernia sac sent for the patho logist. The fascial edges were cleaned and then we proceeded to close this fascial defect with a fig [id number] fashion with #1 Prolene multiple times. The defect looks approximated without resistanc e. The patient tolerated the procedure well. Subcutaneous tissue closed with 3-0 chromic and skin a pproximated with nuzhat. Sponge count, instrument counts correct. The patient tolerated the proced ure well. The patient was sent to recovery in stable condition. If the patient gets discharged home , follow up in my office in 1 week. Keep dressings intact until next doctor's visit. ANDRIY/ELHAM Voice ID: [id number] Report ID: [id number]
--- NOTE | 2021-12-28 15:15 | P.DS ---
Admission Date: 12/27/21 Discharge Date: 12/28/21 Disposition: ROUTINE DISCHARGE Discharge Condition: GOOD Reason for Admission: Ulcerated umbilical hernia - Problems (1) Incarcerated umbilical hernia Current Visit: Yes Status: Acute Brief History of Present Illness: Patient is 51 years of age has been having problems with the umbilical hernia for quite some time became worse today he had obvious hernia that has gotten worse associated with severe pain. From the emergency room the hernia was reduced he still has significant amount of pain tickly on coughing and some redness in the area seen by Dr. Shannon Hospital Course: Patient is 51 years of age admitted for the incarcerated umbilical hernia. He was operated by Dr. Shannon today did well. See Dr. Shannon's operative note that he was discharged soon after surgery after tolerating the dire Taser prescriptions painkillers and antibiotics were directly sent by Dr. Shannon to his of pharmacy is to follow up with Dr. Shannon as per his instructions patient to resume all his medications Vital Signs/Physical Exam: Temp Pulse Resp BP Pulse Ox 97.8 F 64 18 110/64 97 12/28/21 12:41 12/28/21 12:41 12/28/21 12:41 12/28/21 12:41 12/28/21 08:39 Laboratory Data at Discharge: WBC 9.10 K/uL (4.3-10.9) 12/28/21 02:35 Hgb 15.0 g/dL (13.6-17.9) 12/28/21 02:35 Hct 43.9 % (39.6-49.0) 12/28/21 02:35 Plt Count 228 K/uL (152-406) 12/28/21 02:35 PT 11.5 SECONDS (9.5-12.5) 12/27/21 21:14 INR 1.04 12/27/21 21:14 Sodium 141 mmol/L (136-145) 12/28/21 02:35 Potassium 4.4 mmol/L (3.5-5.1) 12/28/21 02:35 BUN 13 mg/dL (7-18) 12/28/21 02:35 Creatinine 0.89 mg/dL (0.55-1.3) 12/28/21 02:35 Glucose 122 mg/dL (74-106) H 12/28/21 02:35 Total Bilirubin 0.2 mg/dL (0.2-1.0) 12/28/21 02:35 AST 8 U/L (15-37) L 12/28/21 02:35 ALT 23 U/L (12-78) 12/28/21 02:35 Alkaline Phosphatase 85 U/L (45-117) 12/28/21 02:35 Lipase 69 U/L (73-393) L 12/27/21 13:37 Home Medications: Olmesartan Medoxomil 40 mg PO DAILY 11/04/18 carvediloL [Coreg*] 3.125 mg PO BID 11/04/18 Physician Discharge Instructions: KEep area dry and intact until next doctor visit. Abdominal binder use while out of bed. Diet: Regular Activity: Ad tico Followup: Ty Shannon MD [ACTIVE - CAN ADMIT] - 1 Week NONE,NONE [Primary Care Provider] -
[2021-12-28 16:42] VITALS: BP 115/57; TEMP 97.5
== END 2021-12-28 17:45 | disposition home or self-care (01) | DRG 355 ==
LOC: ER 12:59 → ERHOLD 15:16 → 4TH 21:46
PROVIDERS: ADMIT Internal Medicine Sleep Medicine; ATTEND Internal Medicine Sleep Medicine
PROC: 0WQF0ZZ Repair Abdominal Wall, Open Approach (ICD-10-PCS; principal; 2021-12-28 11:00)
DX: K42.0 Umbilical hernia with obstruction, without gangrene (principal); E11.9 Type 2 diabetes mellitus without complications; I10 Essential (primary) hypertension; G47.30 Sleep apnea, unspecified; K21.9 Gastro-esophageal reflux disease without esophagitis; D89.89 Other specified disorders involving the immune mechanism, not elsewhere classified; E66.01 Morbid (severe) obesity due to excess calories; Z68.32 Body mass index [BMI] 32.0-32.9, adult; F17.210 Nicotine dependence, cigarettes, uncomplicated; Z71.6 Tobacco abuse counseling; Z98.52 Vasectomy status; Z20.822 Contact with and (suspected) exposure to COVID-19; Z82.49 Family history of ischemic heart disease and other diseases of the circulatory system
CPT/HCPCS: 36415; 80053; 83605; 83690; 85025; 85610; 87811; 88302; 96365; 96367; 96375; 99285; J0330; J0690; J0744; J1170; J2250; J2270; J2405; J2704; J2710; J3010; J7030